=== PATIENT | male | born 1950 | race African-American/Black ===

== ENCOUNTER 2017-04-09 17:25 | Inpatient (IN) | payer OTHER ==
[~2017-04-09 17:25] MED LIST: ISOVUE-370 76%-LOCM 1 ML ONE
[2017-04-09] MEDS ORDERED: Ondansetron HCl/PF 4 MG/2 ML Vial ONE (17:46)
[2017-04-09] MEDS ORDERED: Fentanyl 100 MCG/2 ML VIAL ONE (17:47)
[2017-04-09 18:05] LABS: #Eosinphils 0.1 thou/uL (0.0-0.7); #Lymphocytes 1.4 thou/uL (1.20-3.40); #Monocytes 0.7 thou/uL (0.11-0.59); #Neutrophils 5.5 thou/uL (1.40-6.50); %Basophils 0.5 % (0.0-1.0); %Lymphocytes 18.3 % (21.0-51.0); %Monocytes 8.8 % (0.0-10.0); Hematocrit 37.3 % (42.0-52.0); Mean Platelet Volume 7.5 fL (7.4-10.4); Red Blood Cell (RBC) Count 3.62 mill/uL (4.70-6.10); White Blood Cell (WBC) Count 7.8 thou/uL (4.8-10.8)
[2017-04-09 18:09] LABS: PTT 33.5 SEC (22.9-36.1); Prothrombin Time 14.4 SEC (12.0-14.7)
[2017-04-09 18:18] LABS: Lactic Acid - Sepsis 2.2 mmol/L (0.5-2.2)
[2017-04-09 18:24] LABS: ALT (SGPT) 65 U/L (8-55); AST (SGOT) 70 U/L (5-34); Alkaline Phosphatase 165 U/L (40-150); Anion Gap 15 mmol/L (10-20); BUN (Urea Nitrogen) 23 mg/dL (8.4-25.7); Bilirubin, Total 0.6 mg/dL (0.2-1.2); CK (CPK) 1391 U/L (30-200); Calc. Creatinine Clearance 0 mL/min (70-130); Calcium 9.6 mg/dL (7.8-10.44); Carbon Dioxide 32 mmol/L (23-31); Chloride 96 mmol/L (98-107); Estimated GFR-MDRD 13; Globulin 4.4 g/dL (2.4-3.5); Lipase 74 U/L (8-78); Magnesium 2.4 mg/dL (1.6-2.6); Protein, Total 8.2 g/dL (5.8-8.1)
[2017-04-09] MEDS ORDERED: diphenhydrAMINE 50 MG/ML VIAL ONE (18:33)
[2017-04-09] MEDS ORDERED: methylPREDNISolone Sod Succ/PF 125 MG/2 ML VIAL ONE (18:33)
[2017-04-09] MEDS ORDERED: Famotidine/PF 20 mg/2ml Vial ONE (18:33)
[2017-04-09] MEDS ORDERED: Sterile Water 10 ML ONE (18:34)
--- NOTE | 2017-04-09 18:38 | RAD ---
UPRIGHT PORTABLE CHEST ONE VIEW: 04/09/17 HISTORY: 66-year-old male with cough, weakness, fever and cardiac history. COMPARISON: 08/05/16. FINDINGS: Right ICD. Postop midline sternotomy. Very poor inspiratory effort with some bilateral vascular lila estion and increased markings in the perihilar and infrahilar regions, somewhat more prominent than on prior study although this may be related to decrease inspiratory effort. No overt confluent pneum onia. IMPRESSION: Very poor inspiration. Bilateral vascular congestion with increased linear and interstitial markings bilaterally, somewhat more prominent than on the prior study although this is certainly in part rel ated to less inspiration. No overt confluent pneumonia. Some type of atypical bilateral pneumonitis would certainly be difficult to exclude. POS: CHRISTIANO
--- NOTE | 2017-04-09 18:42 | RAD ---
RIGHT FOOT THREE VIEWS: 04/09/17 HISTORY: 69-year-old male with right foot pain. Patient is a dialysis patient. There is extreme bone demineralization with prominent vascular calcification. Minimal diffuse soft t issue swelling. Minimal cortical deformity of the distal fifth metatarsal which has more the appeara nce of an old fracture, although given the bone demineralization, this could represent an acute mini mal buckling type fracture, correlate clinically. It is new from the 02/28/15 study. IMPRESSION: Diffuse swelling with severe bone demineralization, arthrosis and prominent vascular calcifications. Mild cortical deformity of the distal fifth metatarsal, evidence for a nondisplaced fracture, indet erminate age. POS: JOSEFA
--- NOTE | 2017-04-09 21:02 | CT ---
CT ANGIOGRAM OF THE CHEST WITH 3D RENDERIN04/09/17 HISTORY: 66-year-old male with cough, shortness of breath, chills, and chest pain. Patient is a dialysis tessa ent and indicates a contrast allergy and was premedicated prior to the scan. There are fairly extensive linear and interstitial parenchymal changes throughout both lungs, partic ularly the mid and lower lung zones, some of which appears to be more chronic, although certainly so me degree of interstitial edema or even atypical bilateral pneumonitis is a consideration. There is no significant pleural effusion. There is cardiomegaly with extensive three vessel coronary artery c alcific disease. There is a right ICD. There is some ossification or calcification within the region of the neck of the gallbladder possibly a gallstone or some milk of calcium gallbladder. The visual ized [place] kidneys are small and calcified. The central pulmonary arteries are free of thrombus. Th e more peripheral pulmonary arteries, particularly in the lower lobes are somewhat less than optimal ly imaged because of motion artifact as well as the extensive linear and interstitial lung disease. There is noted what appear to be two possible esophageal diverticula. No evidence for aortic aneurys m. IMPRESSION: No significant CT evidence for acute PE. Central pulmonary arteries are free of thrombus. Some of th e more peripheral lower lobe pulmonary arteries are somewhat less than optimally imaged. Extensive b ilateral linear and interstitial lung disease, particularly in the mid and lower lung zones have a m ore of a chronic appearance although an atypical bilateral pneumonitis could have a similar appearan ce. Right ICD. Extensive three vessel coronary artery calcific disease. Some calcification in the re gion of the neck of the gallbladder possibly small gallstones or some milk of calcium. Very small ch ronic calcified [place] kidneys. POS: CHRISTIANO
[2017-04-09] MEDS ORDERED: Heparin 25,000 units/D5W 500 ML ONE (21:05)
[2017-04-09] MEDS ORDERED: Heparin 5,000 UNITS/ML VIAL ONE (21:05)
[2017-04-09 22:27] LABS: Troponin I 1.176 ng/mL (< 0.028)
[2017-04-09] MEDS ORDERED: Clopidogrel Bisulfate 300 MG TAB PO SCH (23:30)
[2017-04-10 00:03] VITALS: BMI 28.0
[2017-04-10] MEDS ORDERED: Acetaminophen 325 MG TAB PO PRN (00:05)
[2017-04-10] MEDS ORDERED: Ondansetron ODT 4 MG TAB PO PRN (00:05)
[2017-04-10] MEDS ORDERED: Atorvastatin Calcium 40 MG TAB PO SCH (00:15)
[2017-04-10] MEDS: cefTRIAXone\\ROCEPHIN 1 GM in Sodium Chloride 0.9% 100 ML IVPB SCH ×2 (01:03→04:39)
[2017-04-10 01:24] LABS: Troponin I 2.218 ng/mL (< 0.028)
[2017-04-10] MEDS ORDERED: Nitroglycerin 0.4 MG TAB (25 Tab Bottle) SL PRN (03:39)
[2017-04-10] MEDS ORDERED: Albuterol Sulfate 2.5 mg/3 ml Neb NEB PRN (03:40)
[2017-04-10 03:45] LABS: #Lymphocytes 0.7 thou/uL (1.20-3.40); #Monocytes 0.2 thou/uL (0.11-0.59); #Neutrophils 6.8 thou/uL (1.40-6.50); %Eosinophils 0.2 % (0.0-10.0); %Lymphocytes 9.5 % (21.0-51.0); %Monocytes 2.1 % (0.0-10.0); Hematocrit 33.4 % (42.0-52.0); Mean Platelet Volume 7.8 fL (7.4-10.4); Red Blood Cell (RBC) Count 3.23 mill/uL (4.70-6.10); White Blood Cell (WBC) Count 7.7 thou/uL (4.8-10.8)
[2017-04-10 04:01] LABS: ALT (SGPT) 62 U/L (8-55); AST (SGOT) 66 U/L (5-34); Alkaline Phosphatase 152 U/L (40-150); Anion Gap 19 mmol/L (10-20); BUN (Urea Nitrogen) 28 mg/dL (8.4-25.7); Bilirubin, Total 0.5 mg/dL (0.2-1.2); CK (CPK) 1167 U/L (30-200); Calc. Creatinine Clearance 17 mL/min (70-130); Calcium 9.5 mg/dL (7.8-10.44); Carbon Dioxide 25 mmol/L (23-31); Chloride 97 mmol/L (98-107); Estimated GFR-MDRD 11; Globulin 4.1 g/dL (2.4-3.5); Protein, Total 7.8 g/dL (5.8-8.1)
[2017-04-10 04:11] LABS: Critical Call CKMBM RESULT DECREASING; Troponin I 2.386 ng/mL (< 0.028)
[2017-04-10] MEDS ORDERED: cefTRIAXone\\ROCEPHIN 1 GM in Sodium Chloride 0.9% 100 ML IVPB SCH (04:45)
--- NOTE | 2017-04-10 07:17 | PDOC.FM ---
- Subjective Subjective: The patient reports that he is still experiencing some chest discomfort this AM that is in the center of his chest and radiates to his left arm. He is also having SOB and abdominal pain. He denies any nausea, vomiting, leg swelling. - Objective MAR Reviewed: Yes Vital Signs & Weight: Vital Signs (12 hours) Temp Pulse Resp BP Pulse Ox 04/10/17 04:00 98.7 F 82 18 103/46 L 99 04/09/17 23:50 97.2 F L 80 18 127/69 98 Weight Weight 101.775 kg Result Diagrams: 04/10/17 03:38 04/10/17 03:38 <Regina Guevara - Last Filed: 04/10/17 07:44> - Objective Vital Signs & Weight: Vital Signs (12 hours) Temp Pulse Resp BP Pulse Ox 04/10/17 08:00 98.7 F 82 18 95 04/10/17 04:00 98.7 F 82 18 103/46 L 99 04/09/17 23:50 97.2 F L 80 18 127/69 98 Weight Weight 101.775 kg Result Diagrams: 04/10/17 03:38 04/10/17 03:38 <Kathryn High - Last Filed: 04/10/17 10:02> Phys Exam - Physical Examination Constitutional: NAD HEENT: moist MMs Respiratory: wheezing present decreased inspiratory breath sounds, crackles heard at bilateral lung bases Cardiovascular: RRR, no significant murmur Gastrointestinal: soft, no distention, positive bowel sounds tender in RUQ Musculoskeletal: edema present (trace edema around ankles bilaterally) Neurological: non-focal, moves all 4 limbs Psychiatric: normal affect, A&O x 3 <Regina Guevara - Last Filed: 04/10/17 07:44> Dx/Plan (1) NSTEMI (non-ST elevated myocardial infarction) Code(s): I21.4 - NON-ST ELEVATION (NSTEMI) MYOCARDIAL INFARCTION Status: Acute Plan: Patient had NSTEMI with h/o known CAD s/p 3v CABG 09/2014 and AICD placed for ischemic cardiomyopathy in 07/2015 elevated trops, chronic LBBB, atrial paced rhythm on EKG -Cards has been consulted, appreciate recs -Heparin gtt -nitro gtt -aspirin -plavix (2) Interstitial lung disease Code(s): J84.9 - INTERSTITIAL PULMONARY DISEASE, UNSPECIFIED Status: Acute Plan: Patient has interstitial lung disease on CT Decrease inspiration, requiring O2 -Continue O2 supplementation prn -Could be fluid overloaded -continue to monitor (3) Congestive heart failure Code(s): I50.9 - HEART FAILURE, UNSPECIFIED Status: Acute Qualifiers: Congestive heart failure type: diastolic Congestive heart failure chronicity: chronic Qualified Code(s): I50.32 - Chronic diastolic (congestive ) heart failure Plan: Patient had systolic CHF that improved s/p pacemaker placement, but he does have grade I/III diastolic CHF He appears a little fluid overloaded, but this could be 2/2 renal -Will monitor -O2 prn -Continue home meds -Monitor on tele (4) Chronic atrial fibrillation Code(s): I48.2 - CHRONIC ATRIAL FIBRILLATION Status: Resolved Plan: Patient had chronic a-fib, but had pacemaker and AICD placed in 07/2015 -Will monitor on tele -Continue home meds (5) ESRD (end stage renal disease) on dialysis Code(s): N18.6 - END STAGE RENAL DISEASE; Z99.2 - DEPENDENCE ON RENAL DIALYSIS Status: Chronic Plan: Patient has ESRD and has been on dialysis for about 3 years -Will consult track service worker - Dr. Reeves, appreciate recs (6) S/P CABG x 3 Code(s): Z95.1 - PRESENCE OF AORTOCORONARY BYPASS GRAFT Status: Chronic Plan: Patient had a 3v CABG in 09/2014 CT shows evidence of atherosclerosis -Cards on board, appreciate recs -Continue home meds (7) GERD (gastroesophageal reflux disease) Code(s): K21.9 - GASTRO-ESOPHAGEAL REFLUX DISEASE WITHOUT ESOPHAGITIS Status: Acute Qualifiers: Esophagitis presence: without esophagitis Qualified Code(s): K21.9 - Gastro -esophageal reflux disease without esophagitis Plan: stable, continue home meds (8) Anemia of chronic renal failure Code(s): N18.9 - CHRONIC KIDNEY DISEASE, UNSPECIFIED; D63.1 - ANEMIA IN CHRONIC KIDNEY DISEASE Status: Chronic Qualifiers: Chronic kidney disease stage: stage 5 Qualified Code(s): N18.5 - Chronic kidney disease, stage 5; D63.1 - Anemia in chronic kidney disease; D63.1 - Anemia in chronic kidney disease Plan: Stable, chronic -Will monitor <Regina Guevara - Last Filed: 04/10/17 07:44> Attending Addendum - Attending Addendum I personally evaluated the patient and discussed the management with Dr. Guevara. I agree with the History, Examination, Assessment and Plan documented above with any addition or exceptions noted below. The patient continues to note chest pain. He has been loaded with plavix and is on a heparin drip. Cardiology has been consulted. Will also consult Dr. Reeves, pt's track service worker. Get echo. Continue to trend cardiac enzymes. <Kathryn High - Last Filed: 04/10/17 10:02>
[2017-04-10 07:24] LABS: Troponin I 3.151 ng/mL (< 0.028)
[2017-04-10] MEDS: traMADol HCl 50 MG TAB PO PRN (07:26)
[2017-04-10] MEDS: Famotidine/PF 20 mg/2ml Vial SLOW IVP SCH (09:23)
[2017-04-10] MEDS: Aspirin 325 MG TAB PO SCH (09:24)
[2017-04-10] MEDS: Sevelamer Carbonate 800 MG TAB PO SCH ×3 (09:24→17:32)
[2017-04-10] MEDS: Folic Acid 1 MG TAB PO SCH (09:24)
[2017-04-10] MEDS: Clopidogrel Bisulfate 75 MG TAB PO SCH (09:24)
[2017-04-10] MEDS: Gabapentin 100 MG CAP PO SCH (09:24)
[2017-04-10] MEDS ORDERED: diphenhydrAMINE 25 MG CAP PO SCH (12:15)
[2017-04-10 12:21] LABS: PTT 121.6 SEC (22.9-36.1)
[2017-04-10 12:34] LABS: Troponin I 3.369 ng/mL (< 0.028)
--- NOTE | 2017-04-10 16:08 | CON ---
DATE OF CONSULTATION: 04/10/2017 REASON FOR CONSULTATION: Chest pain, non-ST elevation myocardial infarction with continued intermit tent chest pain and hypotension in a patient with end-stage renal disease. HISTORY OF PRESENT ILLNESS: Mr. Lopes is a delightful 66-year-old patient of Dr. Saqib perez. The patient states the last few days he has been having discomfort in his chest, but last night, he had severe amount of chest pain in his middle of his chest that is going across his chest. He c roopa to the emergency room and he has an intraventricular conduction delay on the EKG with previous p acemaker defibrillator, but the cardiac enzymes were elevated. He was given heparin and loaded with Plavix. He continued to have chest pain intermittently, since then feels weak and fatigued now. The patient's blood pressure is also low. PAST MEDICAL HISTORY: The patient has a history of coronary artery disease. He underwent cardiac c atheterization by Dr. Lemos in 2014. The cardiac catheterization was done revealed heavily calc ified 3-vessel disease including diffusely diseased LAD and diagonal system with heavy calcification and occluded circumflex and right coronary. The patient underwent successful bypass surgery to the LAD in one of the diagonals. The other vessels could not be bypassed. The patient has diffuse ath erosclerosis. Patient has also had a problem intermittently with a thrombus in his left ventricle, was transiently on anticoagulation. He also is on hemodialysis. MEDICATIONS AT HOME: Included, 1. Aspirin. 2. Amiodarone for atrial fibrillation. 3. Atorvastatin. 4. Albuterol inhaler. 5. Gabapentin. 6. Plavix. 7. Aspirin. 8. Amoxicillin. ALLERGIES: Allergy to CODEINE, allergy to IODINE, allergy to TETRACYCLINE. SOCIAL HISTORY: He is accompanied by his . His is very supportive of him. Patient does n ot use alcohol or tobacco. He is relatively inactive due to his cardiac problems. PAST SURGICAL HISTORY: 1. The patient has a history of bypass surgery x2 as outlined above 2014. The other vessels could not be bypassed. 2. Previous pacemaker defibrillator implantation. 3. End-stage renal disease, has a dialysis access. REVIEW OF SYSTEMS: Constitutional: Positive for weakness, fatigue. Vision: No changes. Hearing: No changes. Pulmonary: No cough or wheezing. Cardiac: As outlined above. Gastrointestinal: N o nausea, vomiting, diarrhea. Skin: No rashes. Neurologic: No unilateral weakness or numbness. Psychiatric: No unusual depression or anxiety. Hematologic: No unusual bruising. Genitourinary: No burning with urination. Musculoskeletal: No unusual joint pains. Skin: No rashes. PHYSICAL EXAMINATION: GENERAL: He is an ill-appearing gentleman, lying supine. VITAL SIGNS: Blood pressure 99/51, pulse 80. EYES: Sclerae nonicteric. Mouth mucous membranes moist. NECK: Supple. No lymphadenopathy. LUNGS: Clear anteriorly and laterally. CARDIOVASCULAR: Normal S1, normal S2. No murmur, rub or gallop. ABDOMEN: Soft, nontender. No hepatosplenomegaly. EXTREMITIES: Warm, dry. No clubbing. No cyanosis or edema. Pedal pulses are difficult to feel. Popliteal pulses are palpable. PERTINENT LABORATORY AND X-RAY FINDINGS: His peak troponin is 3.151. CPK 1167, creatinine is 6.26. EKG reveals atrial paced ventricular sensed rhythm with a wide complex. I did review the cardiac catheterization films, did reveal heavily calcified 3-vessel disease. Circ umflex and right coronary could not be bypassed, one of the diagonal was bypassed but the others wer e diffuse disease which could not be bypassed. Echocardiogram revealed ejection fraction of 25-30% looks closer to 25% with extensive inferior britni esis and thinning, mild mitral regurgitation. ASSESSMENT: 1. Previous bypass surgery. 2. Three vessel coronary disease, heavily calcified. 3. Non-ST elevation myocardial infarction. 4. Relatively hypotensive. 5. Congestive heart failure, systolic, chronic with relatively low blood pressure. 6. Previous pacemaker defibrillator. 7. History of paroxysmal atrial fibrillation. 8. End-stage renal disease. 9. History of gastrointestinal bleeding in the remote past. Fortunately, his hemoglobin now is 10. 3. PLAN: At this time, the options are difficult and somewhat limited if the patient is in addition to all the above, also allergic to IODINE. At this time, we will hopefully to stabilize him medically . We have added intravenous heparin. If he needs to go to the Intensive Care Unit for medicines fo r blood pressure support to help with dialysis that may need to be done. Reviewing the records, it is unclear how likely any other percutaneous intervention would be helpful based on the diffuse natu re of the disease. The only disease which could potentially be helped would be if there is a lesion in the vein graft. It is impossible to say at this time what the etiology of non-ST elevation infa rction it is. If the problem of the makah vessels, then the options would be limited and medical t herapy will likely the only option. At this time, we will try to stabilize him medically proceed to catheterization only if absolutely needed. Prognosis is guarded in this gentleman and a long discu ssion with the patient and .
--- NOTE | 2017-04-10 17:18 | ADD-HP ---
ADDENDUM CHIEF COMPLAINT: Chest pain. HISTORY OF PRESENT ILLNESS: The patient is a 66-year-old -[place] male with a significant past medical history of end-stage renal disease on hemodialysis Wednesday, Wednesday, Wednesday, hypertension, and chronic atrial fibrillation, coronary artery disease with history of 3-vessel bypass, he also has history of congestive heart failure who presented to the ER after developing chest pain following dialysis. The patient notes that he has had chest pain for about 3 weeks and describes it as crushing substernal chest pain that radiates to his left arm associated with shortness of breath. The patient was noted to have elevated cardiac enzymes, but no ST elevations noted on EKG. The patient has been admitted for NSTEMI and Cardiology has been consulted. The patient has been loaded with Plavix and is on a heparin drip at this time. Cardiac enzymes continue to go up and his chest pain is better than on admission , but is not completely resolved. The patient also notes a cough for a couple weeks off and on as well. I have reviewed the complete history and physical from Dr. Murdock, and have repeated pertinent portions of the physical exam and history myself. I agree with his documentation. Please see the resident's note for full documentation of the history and physical, assessment and plan. KEARA
[2017-04-10 17:29] LABS: Critical Call Chem Troponin I RESULT DECREASING; Troponin I 3.285 ng/mL (< 0.028)
[2017-04-10] MEDS: diphenhydrAMINE 25 MG CAP PO PRN (20:40)
[2017-04-10] MEDS: Atorvastatin Calcium 40 MG TAB PO SCH (20:41)
[2017-04-10] MEDS: Heparin 10,000 UNITS/ 10 ML VIAL SLOW IVP SCH (22:17)
--- NOTE | 2017-04-11 01:16 | HP-2 ---
DATE OF ADMISSION: 04/09/2017 REPORT TYPE: History and physical exam. LOCATION: [place], [place]. DATE OF SERVICE: 04/09/2017. COSIGNER: Kathryn High M.D. Code status: FULL CODE. PRIMARY CARE PHYSICIAN: Mima PRINGLE. ATTENDING PHYSICIAN: Kathryn High M.D. RESIDENT PHYSICIAN: Blaise Murdock DO HISTORIAN: The history provided by the patient and the patient's . SPECIALIST: Nephrology, Dr. Reeves; Cardiology, Dr. Lemos; electrical prospecting engineer unknown. CHIEF COMPLAINT: Increasing shortness of breath, dyspnea on exertion, paroxysmal nocturnal dyspnea, cough, fever, chills, nausea, and vomiting. HISTORY OF PRESENT ILLNESS: The patient is a 66-year-old male with past medical history of coronary artery disease, status post 3-vessel CABG, end-stage renal disease on dialysis Wednesday, Wednesday, a wednesday for 4 hours, hypertension, hyperlipidemia, and hepatitis C, who presents to the ED with 1 month history of increasing dyspnea on exertion, shortness of breath, paroxysmal nocturnal dyspnea. The patient denies any acute events or medication or dialysis regimen changes prior to the onset of these symptoms. He also notes chest pressure while lying flat in bed over the last month that is r elieved by sitting up or with head elevation. He is also complaining of fever, chills, and a produc tive cough. MEDICATIONS: Amiodarone, Zepatier, folic acid, gabapentin, sevelamer, and tramadol. PAST MEDICAL HISTORY: Coronary artery disease status post CABG (3-vessel), ESRD on dialysis. PAST SURGICAL HISTORY: CABG x1. ALLERGIES: No known drug allergies. ER COURSE: In the ER, the patient was given 1 gram of Rocephin, was started on heparin 60 units per kilogram and a heparin drip at 12 units per kilogram per hour, was additionally given aspirin 325 m g, Solu-Medrol 125 mg IV, fentanyl 50 mcg, and 4 mg of Zofran. FAMILY HISTORY: Deferred. SOCIAL HISTORY: Nonsmoker and nondrinker. Denies drug use. ILL CONTACTS: The patient denies ill contacts. REVIEW OF SYSTEMS: GENERAL: The patient complains of fever and chills, sleep changes and fatigue. Denies night sweats . ENT: Complains of nasal congestion, rhinorrhea, sore throat. RESPIRATORY: The patient complains of cough, congestion, shortness of breath, exercise intolerance, dyspnea on exertion. CARDIOVASCULAR: The patient complains of chest pain, palpitations, paroxysmal nocturnal dyspnea, or orthopnea. The patient denies edema. GI: The patient complaints of nausea and vomiting. Denies diarrhea, constipation, abdominal pain. MUSCULOSKELETAL: The patient complains of pain, stiffness, and arthralgias. NEURO: The patient denies complaints of weakness. The patient denies syncopal episodes. PHYSICAL EXAMINATION: VITAL SIGNS: Blood pressure in the ED 108/60, pulse 90, respirations 14-23 breaths per minute, T-ma x 99.1, pulse ox 97% on room air. Current weight 105 kilograms. GENERAL: The patient is alert and oriented, in no acute distress, obese, and lethargic. EYES: Pupils are equal, round, and reactive to light. Extraocular muscles are intact. Conjunctiva within normal limits. ENT: Oropharynx within normal limits. NECK: Supple, without lymphadenopathy, no thyromegaly. CARDIOVASCULAR: Regular rate and rhythm. No murmurs, rubs or gallops. Radial pulses diminished 1+ . Pedal pulses diminished 1+. RESPIRATORY: Normal effort, no retractions. Lungs had rales, rhonchi and expiratory wheezing throu ghout all lung bolanos. SKIN: No cyanosis. ABDOMEN: Soft and nontender. Normoactive bowel sounds in all 4 quadrants. No masses, distention o r organomegaly. EXTREMITIES: No clubbing, no cyanosis. The patient had 1+ pitting edema up to the distal tibia. T he patient also had a left AV fistula in place with an audible bruit on auscultation. MUSCULOSKELETAL: Structure within normal limits. Tone within normal limits. NEUROLOGIC: No focal deficits. Cranial nerves II-XII are intact. GCS 15. LABORATORY DATA: White blood cells 7.8, hemoglobin 11.5, hematocrit 37.3, platelets 186. Sodium 13 9, potassium 4.3, chloride 96, bicarbonate 32, BUN 23, creatinine 5.34, glucose 97, calcium 9.6, tot al protein 8.7, albumin 3.8, AST 70, ALT 65, alkaline phosphatase 165, magnesium 2.4, lactic acid is 2.2. PT 14.4, PTT 33.5, INR 1.1. Cardiac enzymes: CK-MB 61.9. Initial troponin 0.40 and BNP is 1165. Additional labs include CK of 1391, lipase 74. EKG in the ED showed a paced rhythm with a prolonged QT and some left axis deviation. Chest x-ray in the ED showed bilateral vascular congestion with increased linear and interstitial ma rkings bilaterally. CTA showed no evidence of pulmonary embolism. ASSESSMENT AND PLAN: 1. [id number] elevation myocardial infarction. We will admit to tele. The patient was given h eparin in emergency department. Cardiology has been consulted and is aware of the case, recommended Plavix 300 mg, which was given in the emergency department. We will continue to recheck troponins q.3 h. and monitor for signs and symptoms of worsening clinical status and/or a large jump in the tr oponins. We will schedule cardiac echo for tomorrow and continue the patient on Plavix 75 mg per da y. 2. End-stage renal disease on dialysis Wednesday, Wednesday, and Wednesday. We will consult Nephrology a nd appreciate recommendations. Consider dialysis tomorrow. 3. Hyperlipidemia. The patient was placed on high intensity statin. 4. Transaminitis, it is likely secondary to muscular source versus chronic hepatitis. CK was 1339, AST 70, ALT 65, alkaline phosphatase 165. We will trend the LFTs with daily CK and a CMP. 5. Dyspnea on exertion. We will check a procalcitonin to rule out a lung etiology as opposed to ca rdiac, as well as a rapid flu. DISPOSITION AND LENGTH OF HOSPITAL STAY: The patient is guarded. Anticipated length of stay is gre ater than or equal to 2 days. Symptomatic medication will be provided. History and physical exam as well as management was discussed with Dr. Kathryn High.
[2017-04-11] MEDS: Heparin 25,000 units/D5W 500 ML IVPB SCH (03:33)
[2017-04-11 04:52] LABS: #Eosinphils 0.4 thou/uL (0.0-0.7); #Lymphocytes 1.4 thou/uL (1.20-3.40); #Monocytes 0.9 thou/uL (0.11-0.59); #Neutrophils 9.4 thou/uL (1.40-6.50); %Basophils 0.1 % (0.0-1.0); %Eosinophils 3.7 % (0.0-10.0); %Lymphocytes 11.5 % (21.0-51.0); Hematocrit 35.4 % (42.0-52.0); Red Blood Cell (RBC) Count 3.42 mill/uL (4.70-6.10)
[2017-04-11 05:05] LABS: ALT (SGPT) 63 U/L (8-55); AST (SGOT) 56 U/L (5-34); Alkaline Phosphatase 159 U/L (40-150); Anion Gap 22 mmol/L (10-20); BUN (Urea Nitrogen) 45 mg/dL (8.4-25.7); Bilirubin, Total 0.5 mg/dL (0.2-1.2); Calc. Creatinine Clearance 13 mL/min (70-130); Calcium 9.6 mg/dL (7.8-10.44); Carbon Dioxide 25 mmol/L (23-31); Chloride 94 mmol/L (98-107); Estimated GFR-MDRD 8; Globulin 4.3 g/dL (2.4-3.5); Protein, Total 8.2 g/dL (5.8-8.1)
[2017-04-11 05:17] LABS: PTT 208.6 SEC (22.9-36.1)
[2017-04-11] MEDS: Heparin 10,000 UNITS/ 10 ML VIAL SLOW IVP SCH (07:23)
--- NOTE | 2017-04-11 07:30 | PDOC.FM ---
- Subjective Subjective: The patient reports that he is no longer having chest pain and he is not having SOB at this time, currently off oxygen. He denies abdominal pain, nausea, vomiting. - Objective MAR Reviewed: Yes Vital Signs & Weight: Vital Signs (12 hours) Temp Pulse Resp BP Pulse Ox 04/11/17 03:47 99.3 F 92 20 100/65 95 04/11/17 00:00 92 20 115/72 04/10/17 20:00 98.6 F 94 20 108/64 97 Weight Weight 102.829 kg I&O: 04/10/17 04/11/17 04/12/17 06:59 06:59 06:59 Intake Total 720 Output Total 0 Balance 720 Result Diagrams: 04/11/17 04:29 04/11/17 04:29 <Regina Guevara - Last Filed: 04/11/17 07:27> - Objective Vital Signs & Weight: Vital Signs (12 hours) Temp Pulse Resp BP Pulse Ox 04/11/17 08:21 98.9 F 92 20 101/61 93 L 04/11/17 03:47 99.3 F 92 20 100/65 95 04/11/17 00:00 92 20 115/72 Weight Weight 102.829 kg I&O: 04/10/17 04/11/17 04/12/17 06:59 06:59 06:59 Intake Total 1145.2 Output Total 0 Balance 1145.2 Result Diagrams: 04/11/17 04:29 04/11/17 04:29 <Kathrny High - Last Filed: 04/11/17 09:16> Phys Exam - Physical Examination Constitutional: NAD HEENT: moist MMs decreased breath sounds, rales in the bilateral bases Cardiovascular: RRR, no significant murmur, no rub Gastrointestinal: soft, non-tender, no distention, positive bowel sounds Musculoskeletal: pulses present, edema present (trace edema) Neurological: non-focal, moves all 4 limbs Psychiatric: normal affect, A&O x 3 <Regina Guevara - Last Filed: 04/11/17 07:27> Dx/Plan (1) NSTEMI (non-ST elevated myocardial infarction) Code(s): I21.4 - NON-ST ELEVATION (NSTEMI) MYOCARDIAL INFARCTION Status: Acute Plan: NSTEMI with h/o known CAD s/p 3v CABG 09/2014 and AICD placed for ischemic cardiomyopathy in 07/2015 elevated trops, atrial paced rhythm on EKG -Cards has been consulted, appreciate recs - current recommendation is for medical management as patient is not a good candidate for alternatives -Heparin gtt -nitro prn, hypotension yesterday s/p one dose of nitro - so will monitor closely if pt requires nitro again -aspirin -plavix (2) Interstitial lung disease Code(s): J84.9 - INTERSTITIAL PULMONARY DISEASE, UNSPECIFIED Status: Acute Plan: Patient has interstitial lung disease on CT Decrease inspiration, requiring O2 -Continue O2 supplementation prn -Could be fluid overloaded -continue to monitor (3) Congestive heart failure Code(s): I50.9 - HEART FAILURE, UNSPECIFIED Status: Acute Qualifiers: Congestive heart failure type: diastolic Congestive heart failure chronicity: chronic Qualified Code(s): I50.32 - Chronic diastolic (congestive ) heart failure Plan: Patient had systolic CHF that improved s/p pacemaker placement, but he does have grade I/III diastolic CHF He appears a little fluid overloaded, but this could be 2/2 renal -Will monitor -O2 prn -Continue home meds -Monitor on tele (4) ESRD (end stage renal disease) on dialysis Code(s): N18.6 - END STAGE RENAL DISEASE; Z99.2 - DEPENDENCE ON RENAL DIALYSIS Status: Chronic Plan: Patient has ESRD and has been on dialysis for about 3 years -Will consult scientific writer - Dr. Reeves, appreciate recs -Dialysis MWF (5) S/P CABG x 3 Code(s): Z95.1 - PRESENCE OF AORTOCORONARY BYPASS GRAFT Status: Chronic Plan: Patient had a 3v CABG in 09/2014 CT shows evidence of atherosclerosis -Cards on board, appreciate recs -Continue home meds (6) GERD (gastroesophageal reflux disease) Code(s): K21.9 - GASTRO-ESOPHAGEAL REFLUX DISEASE WITHOUT ESOPHAGITIS Status: Acute Qualifiers: Esophagitis presence: without esophagitis Qualified Code(s): K21.9 - Gastro -esophageal reflux disease without esophagitis Plan: stable, continue home meds (7) Anemia of chronic renal failure Code(s): N18.9 - CHRONIC KIDNEY DISEASE, UNSPECIFIED; D63.1 - ANEMIA IN CHRONIC KIDNEY DISEASE Status: Chronic Qualifiers: Chronic kidney disease stage: stage 5 Qualified Code(s): N18.5 - Chronic kidney disease, stage 5; D63.1 - Anemia in chronic kidney disease; D63.1 - Anemia in chronic kidney disease Plan: Stable, chronic -Will monitor <Regina Guevara - Last Filed: 04/11/17 07:27> Attending Addendum - Attending Addendum I personally evaluated the patient and discussed the management with Dr. Guevara. I agree with the History, Examination, Assessment and Plan documented above with any addition or exceptions noted below. The patient is no longer having chest pain. He is getting dialysis this morning. Patient is being managed medically for nstemi. <Kathryn High - Last Filed: 04/11/17 09:16>
[2017-04-11] MEDS: Lidocaine 4% Topical Sol 50 ML BOT TOP SCH (07:48)
[2017-04-11] MEDS: Aspirin 325 MG TAB PO SCH (12:38)
[2017-04-11] MEDS: Sevelamer Carbonate 800 MG TAB PO SCH ×3 (12:38→18:24)
[2017-04-11] MEDS: Gabapentin 100 MG CAP PO SCH (12:39)
[2017-04-11] MEDS: Clopidogrel Bisulfate 75 MG TAB PO SCH (12:39)
[2017-04-11] MEDS: Folic Acid 1 MG TAB PO SCH (12:39)
[2017-04-11] MEDS: Famotidine/PF 20 mg/2ml Vial SLOW IVP SCH (12:42)
[2017-04-11] MEDS: diphenhydrAMINE 25 MG CAP PO PRN ×2 (12:48→18:39)
[2017-04-11] MEDS: traMADol HCl 50 MG TAB PO PRN (12:48)
[2017-04-11] MEDS: ELBASVIR PO SCH ×2 (18:25→20:57)
[2017-04-11] MEDS: GRAZOPREVIR PO SCH ×2 (18:25→20:57)
--- NOTE | 2017-04-11 20:31 | PRG ---
DATE OF SERVICE: 04/11/2017 HISTORY OF PRESENT ILLNESS: Mr. Lopes is in bed. He is not having chest pain. Today, he underwe nt dialysis successfully. The blood pressure on the low side according to the family. He is restin g comfortably now. PHYSICAL EXAMINATION VITAL SIGNS: Blood pressure is 96/50, pulse 92, irregular. LUNGS: Clear. CARDIAC: Normal S1, normal S2. ABDOMEN: Soft, nontender. EXTREMITIES: There is no edema. ASSESSMENT: 1. End-stage renal disease. 2. Status post non-ST elevation myocardial infarction. 3. Previous bypass surgery with calcified vessels. 4. Allergic to IODINE. PLAN: I will let Dr. Lemos know the patient is here to see if he wants to do heart catheterizat ion tomorrow. If so, he will be need to be pretreated for IODINE allergy. No other changes at the present time.
[2017-04-11] MEDS: Atorvastatin Calcium 40 MG TAB PO SCH (20:56)
[2017-04-11] MEDS ORDERED: predniSONE 20 MG TAB PO SCH (22:30)
[2017-04-11] MEDS: Famotidine 20 MG TAB PO SCH (22:47)
[2017-04-12] MEDS: predniSONE 20 MG TAB PO SCH ×2 (04:33→10:35)
[2017-04-12] MEDS: Famotidine 20 MG TAB PO SCH ×2 (04:33→10:35)
[2017-04-12 05:33] LABS: #Eosinphils 0.1 thou/uL (0.0-0.7); #Lymphocytes 0.6 thou/uL (1.20-3.40); #Monocytes 0.3 thou/uL (0.11-0.59); #Neutrophils 6.4 thou/uL (1.40-6.50); %Basophils 0.5 % (0.0-1.0); %Eosinophils 1.3 % (0.0-10.0); %Lymphocytes 7.6 % (21.0-51.0); %Monocytes 3.3 % (0.0-10.0); Hematocrit 32.3 % (42.0-52.0); Mean Platelet Volume 8.3 fL (7.4-10.4); Red Blood Cell (RBC) Count 3.09 mill/uL (4.70-6.10); White Blood Cell (WBC) Count 7.4 thou/uL (4.8-10.8)
[2017-04-12 05:53] LABS: ALT (SGPT) 64 U/L (8-55); AST (SGOT) 53 U/L (5-34); Alkaline Phosphatase 145 U/L (40-150); Anion Gap 20 mmol/L (10-20); BUN (Urea Nitrogen) 28 mg/dL (8.4-25.7); Bilirubin, Total 0.6 mg/dL (0.2-1.2); Calc. Creatinine Clearance 17 mL/min (70-130); Calcium 10.3 mg/dL (7.8-10.44); Carbon Dioxide 22 mmol/L (23-31); Chloride 95 mmol/L (98-107); Estimated GFR-MDRD 11; Globulin 4.2 g/dL (2.4-3.5)
[2017-04-12] MEDS: Folic Acid 1 MG TAB PO SCH (06:31)
[2017-04-12] MEDS: Aspirin 325 MG TAB PO SCH (06:31)
[2017-04-12] MEDS: Clopidogrel Bisulfate 75 MG TAB PO SCH (06:31)
[2017-04-12] MEDS: Gabapentin 100 MG CAP PO SCH (06:31)
[2017-04-12] MEDS: Heparin 10,000 UNITS/ 10 ML VIAL SLOW IVP SCH (06:40)
[2017-04-12] MEDS: Heparin 25,000 units/D5W 500 ML IVPB SCH (06:50)
[2017-04-12] MEDS: Sevelamer Carbonate 800 MG TAB PO SCH ×3 (07:59→17:21)
--- NOTE | 2017-04-12 08:21 | PDOC.FM ---
- Subjective Subjective: Mr. Lopes reports that he has not had chest pain since yesterday. He is still having a cough with some SOB. He denies any nausea, vomiting, abdominal pain, lightheadedness, fever, chills. - Objective MAR Reviewed: Yes Vital Signs & Weight: Vital Signs (12 hours) Temp Pulse Resp BP Pulse Ox 04/12/17 04:00 98.3 F 94 16 124/58 L 92 L 04/11/17 23:55 98.3 F 85 18 108/69 92 L Weight Weight 104.326 kg I&O: 04/11/17 04/12/17 04/13/17 06:59 06:59 06:59 Intake Total 1145.2 1035 Output Total 0 484 Balance 1145.2 551 Result Diagrams: 04/12/17 04:32 04/12/17 04:32 Phys Exam - Physical Examination Constitutional: NAD HEENT: moist MMs Respiratory: no wheezing, no rales, no rhonchi, clear to auscultation bilateral Cardiovascular: RRR, no significant murmur, no rub Gastrointestinal: soft, non-tender, no distention Musculoskeletal: no edema, pulses present Neurological: non-focal, moves all 4 limbs Psychiatric: normal affect, A&O x 3 Dx/Plan (1) NSTEMI (non-ST elevated myocardial infarction) Code(s): I21.4 - NON-ST ELEVATION (NSTEMI) MYOCARDIAL INFARCTION Status: Acute Plan: NSTEMI with h/o known CAD s/p 3v CABG 09/2014 and AICD placed for ischemic cardiomyopathy in 07/2015 elevated trops, atrial paced rhythm on EKG -Cards has been consulted, appreciate recs - Pt is being pre-treated with prednisone for cath today as pt is allergic to iodine -Heparin gtt -nitro prn -aspirin -plavix (2) Interstitial lung disease Code(s): J84.9 - INTERSTITIAL PULMONARY DISEASE, UNSPECIFIED Status: Acute Plan: Patient has interstitial lung disease on CT Decrease inspiration, requiring O2 -Continue O2 supplementation prn -Could be fluid overloaded -continue to monitor (3) Congestive heart failure Code(s): I50.9 - HEART FAILURE, UNSPECIFIED Status: Acute Qualifiers: Congestive heart failure type: diastolic Congestive heart failure chronicity: chronic Qualified Code(s): I50.32 - Chronic diastolic (congestive ) heart failure Plan: Patient had systolic CHF that improved s/p pacemaker placement, but he does have grade I/III diastolic CHF He appears a little fluid overloaded, but this could be 2/2 renal -Will monitor -O2 prn -Continue home meds -Monitor on tele (4) ESRD (end stage renal disease) on dialysis Code(s): N18.6 - END STAGE RENAL DISEASE; Z99.2 - DEPENDENCE ON RENAL DIALYSIS Status: Chronic Plan: Patient has ESRD and has been on dialysis for about 3 years -Will consult cafeteria worker - Dr. Reeves, appreciate recs Pt received dialysis yesterday -Dialysis MWF (5) S/P CABG x 3 Code(s): Z95.1 - PRESENCE OF AORTOCORONARY BYPASS GRAFT Status: Chronic Plan: Patient had a 3v CABG in 09/2014 CT shows evidence of atherosclerosis -Cards on board, appreciate recs -Continue home meds (6) GERD (gastroesophageal reflux disease) Code(s): K21.9 - GASTRO-ESOPHAGEAL REFLUX DISEASE WITHOUT ESOPHAGITIS Status: Acute Qualifiers: Esophagitis presence: without esophagitis Qualified Code(s): K21.9 - Gastro -esophageal reflux disease without esophagitis Plan: stable, continue home meds (7) Anemia of chronic renal failure Code(s): N18.9 - CHRONIC KIDNEY DISEASE, UNSPECIFIED; D63.1 - ANEMIA IN CHRONIC KIDNEY DISEASE Status: Chronic Qualifiers: Chronic kidney disease stage: stage 5 Qualified Code(s): N18.5 - Chronic kidney disease, stage 5; D63.1 - Anemia in chronic kidney disease; D63.1 - Anemia in chronic kidney disease Plan: Stable, chronic -Will monitor
[2017-04-12] MEDS: diphenhydrAMINE 25 MG CAP PO PRN ×2 (10:37→20:41)
--- NOTE | 2017-04-12 11:38 | EKG ---
Test Reason : Blood Pressure : / mmHG Vent. Rate : 079 BPM Atrial Rate : 079 BPM P-R Int : 240 ms QRS Dur : 162 ms QT Int : 440 ms P-R-T Axes : 029 -34 134 degrees QTc Int : 504 ms Atrial-paced rhythm with prolonged AV conduction Left axis deviation Left bundle branch block Abnormal ECG When compared with ECG of 05-AUG-2016 14:03, Electronic atrial pacemaker has replaced Sinus rhythm Left bundle branch block has replaced Incomplete right bundle branch block Criteria for Inferior infarct are no longer Present Confirmed by DR. Veronica BAGLEY ([id number]) on 04/12/2017 11:37:54 AM Referred By: KEVIN Confirmed By:DR. Veronica BAGLEY
--- NOTE | 2017-04-12 11:42 | ADD-PRG ---
DATE OF SERVICE: 04/12/2017 This is an addendum to the note of Dr. Regina Guevara. Mr. Lopes is a pleasant 66-year-old black male patient with a known history of coronary artery dis ease status post CABG. He was admitted with chest pain and found to have NSTEMI. He is currently a symptomatic. He has been seen in consultation by the Cardiology Service who are taking him for card iac catheterization at noon. He also has a history of a peripheral neuropathy which we will work up with a TSH, B12 and checking for diabetes of which he has no history.
[2017-04-12] MEDS ORDERED: Hydrocortisone Sod Succ/PF 100 mg/2 ml Vial ONE (12:59)
[2017-04-12] MEDS ORDERED: Nitroglycerin 0.4 MG TAB (25 Tab Bottle) SL PRN (13:05)
[2017-04-12] MEDS ORDERED: Sodium Chloride 0.9% 200 ML IV PRN (13:15)
[2017-04-12 14:37] LABS: PTT 136.2 SEC (22.9-36.1)
[2017-04-12] MEDS ORDERED: Iopamidol 370 76% 100 ML VIAL ONE (15:33)
[2017-04-12] MEDS: Atorvastatin Calcium 40 MG TAB PO SCH (20:40)
[2017-04-12] MEDS: GRAZOPREVIR PO SCH (20:40)
[2017-04-12] MEDS: ELBASVIR PO SCH (20:40)
[2017-04-13 05:34] LABS: #Basophils 0.1 thou/uL (0.0-0.2); #Eosinphils 0.1 thou/uL (0.0-0.7); #Lymphocytes 0.7 thou/uL (1.20-3.40); #Monocytes 0.6 thou/uL (0.11-0.59); #Neutrophils 7.2 thou/uL (1.40-6.50); %Basophils 0.6 % (0.0-1.0); %Eosinophils 0.9 % (0.0-10.0); %Lymphocytes 8.2 % (21.0-51.0); Hematocrit 32.7 % (42.0-52.0); White Blood Cell (WBC) Count 8.7 thou/uL (4.8-10.8)
[2017-04-13 05:36] LABS: PTT 31.3 SEC (22.9-36.1); Prothrombin Time 14.1 SEC (12.0-14.7)
[2017-04-13 05:58] LABS: ALT (SGPT) 60 U/L (8-55); AST (SGOT) 44 U/L (5-34); Alkaline Phosphatase 129 U/L (40-150); Anion Gap 20 mmol/L (10-20); BUN (Urea Nitrogen) 46 mg/dL (8.4-25.7); Bilirubin, Total 0.6 mg/dL (0.2-1.2); Calc. Creatinine Clearance 14 mL/min (70-130); Carbon Dioxide 22 mmol/L (23-31); Chloride 94 mmol/L (98-107); Estimated GFR-MDRD 8; Protein, Total 7.7 g/dL (5.8-8.1)
[2017-04-13] MEDS: Lidocaine 4% Topical Sol 50 ML BOT TOP SCH (06:25)
--- NOTE | 2017-04-13 09:13 | PDOC.FM ---
- Subjective Subjective: Patient in dialysis this AM, resting comfortably. He denies any chest pain, SOB , nausea, vomiting, abdominal pain. He reports no difficulty after the cardiac cath yesterday. He is eating and drinking well. - Objective MAR Reviewed: Yes Vital Signs & Weight: Vital Signs (12 hours) Temp Pulse Resp BP BP Pulse Ox 04/13/17 03:47 97.8 F 73 16 122/81 100 04/12/17 23:41 98.0 F 77 16 95/58 L 94 L Weight Weight 104.372 kg I&O: 04/12/17 04/13/17 04/14/17 06:59 06:59 06:59 Intake Total 1035 950 Output Total 484 0 Balance 551 950 Result Diagrams: 04/13/17 05:09 04/13/17 05:09 Phys Exam - Physical Examination Constitutional: NAD HEENT: moist MMs Respiratory: no wheezing, no rales, no rhonchi, clear to auscultation bilateral Cardiovascular: RRR, no significant murmur, no rub, gallop Gastrointestinal: soft, non-tender, no distention, positive bowel sounds Musculoskeletal: no edema, pulses present Neurological: non-focal, moves all 4 limbs Psychiatric: normal affect, A&O x 3 Dx/Plan (1) NSTEMI (non-ST elevated myocardial infarction) Code(s): I21.4 - NON-ST ELEVATION (NSTEMI) MYOCARDIAL INFARCTION Status: Acute Plan: NSTEMI with h/o known CAD s/p 3v CABG 09/2014 and AICD placed for ischemic cardiomyopathy in 07/2015 elevated trops, atrial paced rhythm on EKG -Cards has been consulted, appreciate recs -Cardiac cath done on 04/12 -Heparin gtt discontinued on 04/12 -nitro prn -aspirin -plavix (2) Interstitial lung disease Code(s): J84.9 - INTERSTITIAL PULMONARY DISEASE, UNSPECIFIED Status: Acute Plan: Patient has interstitial lung disease on CT Decrease inspiration, requiring O2 -Continue O2 supplementation prn -continue to monitor (3) Congestive heart failure Code(s): I50.9 - HEART FAILURE, UNSPECIFIED Status: Acute Qualifiers: Congestive heart failure type: diastolic Congestive heart failure chronicity: chronic Qualified Code(s): I50.32 - Chronic diastolic (congestive ) heart failure Plan: Patient has systolic CHF with EF 25-30% and he does have grade I/III diastolic CHF He appears a little fluid overloaded, but he is getting dialysis -Will monitor -O2 prn -Continue home meds -Monitor on tele (4) ESRD (end stage renal disease) on dialysis Code(s): N18.6 - END STAGE RENAL DISEASE; Z99.2 - DEPENDENCE ON RENAL DIALYSIS Status: Chronic Plan: Patient has ESRD and has been on dialysis for about 3 years -Will consult certified vehicle fire investigator - Dr. Reeves, appreciate recs Pt received dialysis 04/11 and 04/13 -Dialysis MWF (5) S/P CABG x 3 Code(s): Z95.1 - PRESENCE OF AORTOCORONARY BYPASS GRAFT Status: Chronic Plan: Patient had a 3v CABG in 09/2014 CT shows evidence of atherosclerosis -Cards on board, appreciate recs -Continue home meds (6) GERD (gastroesophageal reflux disease) Code(s): K21.9 - GASTRO-ESOPHAGEAL REFLUX DISEASE WITHOUT ESOPHAGITIS Status: Acute Qualifiers: Esophagitis presence: without esophagitis Qualified Code(s): K21.9 - Gastro -esophageal reflux disease without esophagitis Plan: stable, continue home meds (7) Anemia of chronic renal failure Code(s): N18.9 - CHRONIC KIDNEY DISEASE, UNSPECIFIED; D63.1 - ANEMIA IN CHRONIC KIDNEY DISEASE Status: Chronic Qualifiers: Chronic kidney disease stage: stage 5 Qualified Code(s): N18.5 - Chronic kidney disease, stage 5; D63.1 - Anemia in chronic kidney disease; D63.1 - Anemia in chronic kidney disease Plan: Stable, chronic -Will monitor
[2017-04-13] MEDS: Aspirin 325 MG TAB PO SCH (10:54)
[2017-04-13] MEDS: Sevelamer Carbonate 800 MG TAB PO SCH ×3 (10:54→16:51)
[2017-04-13] MEDS: Folic Acid 1 MG TAB PO SCH (10:54)
[2017-04-13] MEDS: Clopidogrel Bisulfate 75 MG TAB PO SCH (10:54)
[2017-04-13] MEDS: Gabapentin 100 MG CAP PO SCH (10:54)
--- NOTE | 2017-04-13 11:41 | ADD-PRG ---
DATE OF SERVICE: 04/13/2017 This is an addendum to the note of Dr. Regina Guevara. Mr. Lopes is currently in dialysis and in no distress. The official report from his cardiac cath has not returned, but he tells us that everything was \\\\"okay\\\\" and no changes have been made in hi s regimen. After consulting with Cardiology we will discharge the patient after dialysis.
[2017-04-13 16:24] VITALS: BP 92/60; TEMP 98.1
--- NOTE | 2017-04-14 13:20 | DIS-2 ---
DATE OF ADMISSION: 04/09/2017 DATE OF DISCHARGE: 04/13/2017 ADMITTING RESIDENT: Blaise Murdock DO DISCHARGE RESIDENT: Regina Guevara MD ADMITTING ATTENDING: Kathryn High MD DISCHARGE ATTENDING: Bigg Pace MD CONSULTATIONS: Dr. Abel and Dr. Lemos with Cardiology, and Dr. Reeves with Nephrology. PROCEDURES: Cardiac catheterization on 04/12/2017. IMAGIN. Chest x-ray showed very poor inspiration, bilateral vascular congestion with increased linear and interstitial markings bilaterally. 2. Chest thorax CTA showed no evidence for acute PE, however, extensive bilateral linear and interstitial lung disease and extensive 3-vessel coronary artery calcific disease. 3. Echocardiogram, ejection fraction of 25% to 30%, inferior akinetic and thinned compatible with old infarct. Left atrium is mildly dilated. PRIMARY DIAGNOSES: 1. Nyd-TC-uvrgpmlou myocardial infarction. 2. Transaminitis. 3. Congestive heart failure. 4. End-stage renal disease on hemodialysis. 5. Anemia of chronic renal failure. SECONDARY DIAGNOSES: 1. Interstitial lung disease. 2. History of coronary artery bypass grafting x3. 3. Gastroesophageal reflux disease. DISCHARGE MEDICATIONS: 1. Guaifenesin codeine 200 mg p.o. q.6 hours. 2. Multivitamin 1 each p.o. daily. 3. Claritin 10 mg p.o. daily p.r.n. 4. Gabapentin 100 mg p.o. daily. 5. Plavix 75 mg p.o. daily. 6. Zepatier one each p.o. at bedtime. 7. Ultram 50 mg p.o. t.i.d. p.r.n. 8. Renvela 1600 mg p.o. t.i.d. with meals. 9. Zofran 4 mg p.o. q.6 hours p.r.n. 10. Nitroglycerin 0.4 mg sublingual q.5 minutes p.r.n. 11. Hydrocodone/acetaminophen 10/325 mg 1 each p.o. p.r.n. 12. Folic acid 1 mg p.o. daily. 13. Docusate 100 mg p.o. daily. 14. Atorvastatin 40 mg p.o. at bedtime. 15. Aspirin 81 mg p.o. daily. 16. Amoxicillin 500 mg p.o. t.i.d. 17. Amiodarone 200 mg p.o. daily. 18. ProAir HFA 2 puffs inhaled t.i.d. p.r.n. 19. Ventolin nebulized 3 mL q.6 hours p.r.n. DISCONTINUED MEDICATIONS: None. HISTORY OF PRESENT ILLNESS AND HOSPITAL COURSE: This is a 67-year-old gentleman with a past medical history of coronary artery disease, status post 3- vessel CABG, end-stage renal disease on hemodialysis, interstitial lung disease , who presented with an NSTEMI. Initially, the patient's troponins were elevated , started at 0.4 and continue to trend up and peaked at 3.369 and then began to trend down. His BNP was also elevated at 1165.6. The patient was initially hypotensive after receiving nitro and with his allergy to IODINE. Cardiology decided to medically manage the patient at first with a heparin drip and Plavix to see if the patient would improve with medical therapy. The patient's chest pain did improve; however, on 04/11/2017, it was decided to go forward with doing the cardiac catheterization; however, with the patient's allergy to IODINE , he would require pretreatment with prednisone and the catheterization was planned for 04/12/2017. The cath was done on 04/12/2017, showed no disease that needed urgent intervention. The patient received dialysis on outside of his regular Wednesday, Wednesday, Wednesday routine. He received dialysis on Wednesday and on Wednesday to help with some element of volume overload. The patient's outpatient stock roller, Dr. Lemos informed us that the patient did not need to be on an MAXI inhibitor, ARB, or beta carlos, however, the reason for this is unknown, but this stock roller has been following this patient for number of years. The patient was discharged in good condition with followup scheduled with Dr. Lemos and his primary care physician. DISPOSITION: Stable. DISCHARGE INSTRUCTIONS: 1. Location: Home. 2. Diet: Heart healthy and renal. 3. Activity: Cardiopulmonary limitations. 4. Followup: Follow up with Dr. Parry within [address] Lemos on 04/16/2017 at 11:15 a.m. [facility]ENTERArnaud
== END 2017-04-13 18:21 | disposition home or self-care (01) | DRG 280 ==
LOC: ERS 17:25 → 2NO 21:01
PROVIDERS: ADMIT Family Medicine; ATTEND Family Medicine
PROC: 5A1D70Z Performance of Urinary Filtration, Intermittent, Less than 6 Hours Per Day (ICD-10-PCS; 2017-04-11)
PROC: 4A023N7 Measurement of Cardiac Sampling and Pressure, Left Heart, Percutaneous Approach (ICD-10-PCS; principal; 2017-04-12)
PROC: B2111ZZ Fluoroscopy of Multiple Coronary Arteries using Low Osmolar Contrast (ICD-10-PCS; 2017-04-12)
PROC: B2151ZZ Fluoroscopy of Left Heart using Low Osmolar Contrast (ICD-10-PCS; 2017-04-12)
PROC: B2131ZZ Fluoroscopy of Multiple Coronary Artery Bypass Grafts using Low Osmolar Contrast (ICD-10-PCS; 2017-04-12)
DX: I21.4 Non-ST elevation (NSTEMI) myocardial infarction (principal); N18.6 End stage renal disease; I13.2 Hypertensive heart and chronic kidney disease with heart failure and with stage 5 chronic kidney disease, or end stage renal disease; J84.9 Interstitial pulmonary disease, unspecified; I95.9 Hypotension, unspecified; E87.70 Fluid overload, unspecified; I50.22 Chronic systolic (congestive) heart failure; I48.2 Chronic atrial fibrillation; I25.10 Atherosclerotic heart disease of native coronary artery without angina pectoris; E78.5 Hyperlipidemia, unspecified; B18.2 Chronic viral hepatitis C; K21.9 Gastro-esophageal reflux disease without esophagitis; G47.33 Obstructive sleep apnea (adult) (pediatric); D63.1 Anemia in chronic kidney disease; Z99.2 Dependence on renal dialysis; Z79.51 Long term (current) use of inhaled steroids; Z88.8 Allergy status to other drugs, medicaments and biological substances; Z88.1 Allergy status to other antibiotic agents; Z88.5 Allergy status to narcotic agent; Z91.09 Other allergy status, other than to drugs and biological substances
CPT/HCPCS: 36415; 36416; 71010; 71275; 76942; 80053; 82550; 82553; 82607; 83605; 83690; 83735; 83880; 84145; 84443; 84484; 85025; 85347; 85610; 85730; 87040; 87340; 90935; 93005; 93010; 93306; 93455; 93798; 96365; 96366; 96375; 96376; 99292; A4216; C1760; C1769; G0257; J0696; J1200; J1644; J1720; J2001; J2405; J2930; J3010; J7050; J7506; S0028

== ENCOUNTER 2017-05-01 12:30 | Inpatient (IN) | payer MEDICARE, OTHER ==
[2017-05-01 13:23] LABS: Lactic Acid - Sepsis 2.4 mmol/L (0.5-2.2)
[2017-05-01 13:26] LABS: ALT (SGPT) 55 U/L (8-55); AST (SGOT) 49 U/L (5-34); Alkaline Phosphatase 158 U/L (40-150); Anion Gap 16 mmol/L (10-20); BUN (Urea Nitrogen) 16 mg/dL (8.4-25.7); Bilirubin, Total 0.5 mg/dL (0.2-1.2); CK (CPK) 724 U/L (30-200); Calc. Creatinine Clearance 0 mL/min (70-130); Calcium 9.2 mg/dL (7.8-10.44); Carbon Dioxide 28 mmol/L (23-31); Chloride 100 mmol/L (98-107); Estimated GFR-MDRD 10; Globulin 4.1 g/dL (2.4-3.5); Lipase 71 U/L (8-78); Magnesium 2.3 mg/dL (1.6-2.6); Protein, Total 7.8 g/dL (5.8-8.1)
[2017-05-01 13:27] LABS: Hematocrit 31.4 % (42.0-52.0); Mean Platelet Volume 7.5 fL (7.4-10.4); Red Blood Cell (RBC) Count 2.85 mill/uL (4.70-6.10); White Blood Cell (WBC) Count 8.8 thou/uL (4.8-10.8)
[2017-05-01 13:36] LABS: Troponin I 0.326 ng/mL (< 0.028)
[2017-05-01 14:14] LABS: #Basophils 0.1 thou/uL (0.0-0.2); #Monocytes 0.8 thou/uL (0.11-0.59); #Neutrophils 5.9 thou/uL (1.40-6.50); %Basophils 0.6 % (0.0-1.0); %Eosinophils 0.4 % (0.0-10.0); %Lymphocytes 22.9 % (21.0-51.0); %Monocytes 9.1 % (0.0-10.0); Macrocytosis SLIGHT = 6-15 cells (100X) (0-5/hpf); Polychromasia SLIGHT = 2-3 cells (100X) (0-2/hpf)
--- NOTE | 2017-05-01 15:25 | RAD ---
PORTABLE CHEST: Date: 05/01/17 HISTORY: Cough. FINDINGS: Comparison with 04/09/17 exam. Heart size is enlarged. Postop sternotomy change and defibrillator device present. Film is of subopti mal inspiration. Bibasilar lung changes are similar to the prior exam. IMPRESSION: Cardiomegaly with bibasilar lung changes, which appear to represent atelectasis. Changes are very sim ilar to the previous study. POS: CHRISTIANO
[2017-05-01 16:26] LABS: Troponin I 0.471 ng/mL (< 0.028)
[2017-05-01 19:36] LABS: Troponin I 0.761 ng/mL (< 0.028)
[2017-05-01] MEDS ORDERED: Norepinephrine 8 MG/0.9% NS 250 ML ONE (20:06)
[2017-05-01 21:47] LABS: Sodium 141 mmol/L (135-148)
[2017-05-01 21:54] LABS: Mode NC
[2017-05-01 22:54] VITALS: BMI 28.3
[2017-05-01] MEDS ORDERED: Cefepime 2 GM in Syringe 12.5 ML IVPB SCH (23:00)
[2017-05-01 23:24] LABS: #Eosinphils 0.1 thou/uL (0.0-0.7); #Lymphocytes 1.5 thou/uL (1.20-3.40); #Monocytes 0.6 thou/uL (0.11-0.59); #Neutrophils 6.9 thou/uL (1.40-6.50); %Basophils 0.2 % (0.0-1.0); %Lymphocytes 15.9 % (21.0-51.0); %Monocytes 7.1 % (0.0-10.0); Hematocrit 31.6 % (42.0-52.0); Mean Platelet Volume 7.7 fL (7.4-10.4); Red Blood Cell (RBC) Count 2.87 mill/uL (4.70-6.10); White Blood Cell (WBC) Count 9.1 thou/uL (4.8-10.8)
--- NOTE | 2017-05-01 23:29 | RAD ---
CHEST ONE VIEW 05/01/17 HISTORY: Sepsis. COMPARISON: Chest one view same day. FINDINGS: Heart size continues to be enlarged. There are bibasilar air space opacities. Lungs are severely hypo inflated. Cardiac device is similar. There are layering bilateral pleural effusions. IMPRESSION: No significant change in the radiographic appearance of the chest. POS: H
[2017-05-01 23:37] LABS: Lactic Acid - Sepsis 0.9 mmol/L (0.5-2.2)
[2017-05-01] MEDS ORDERED: Vancomycin HCl 1.25 GM in Sodium Chloride 0.9% 250 ML 250 ML IVPB PRN (23:39)
[2017-05-01] MEDS ORDERED: Vancomycin HCl 750 MG in Sodium Chloride 0.9% 250 ML 250 ML IVPB PRN (23:42)
[2017-05-01] MEDS ORDERED: Vancomycin HCl 1 GM in Premix Bag 1 BAG IVPB PRN (23:42)
[2017-05-01] MEDS ORDERED: Vancomycin HCl 500 MG in Sodium Chloride 0.9% 100 ML IVPB PRN (23:42)
[2017-05-01 23:43] LABS: ALT (SGPT) 44 U/L (8-55); AST (SGOT) 40 U/L (5-34); Alkaline Phosphatase 141 U/L (40-150); Anion Gap 14 mmol/L (10-20); BUN (Urea Nitrogen) 19 mg/dL (8.4-25.7); Bilirubin, Total 0.5 mg/dL (0.2-1.2); Calc. Creatinine Clearance 14 mL/min (70-130); Carbon Dioxide 29 mmol/L (23-31); Chloride 100 mmol/L (98-107); Estimated GFR-MDRD 9; Globulin 3.8 g/dL (2.4-3.5); Protein, Total 7.2 g/dL (5.8-8.1)
[2017-05-01] MEDS ORDERED: Vancomycin Sliding Scale 1 EACH FS PRN (23:43)
[2017-05-01] MEDS ORDERED: HOLD VANCOMYCIN FOR LEVEL >20 FS PRN (23:43)
[2017-05-02 00:17] LABS: Vancomycin, Trough 37.1 ug/mL
[2017-05-02 00:51] LABS: Troponin I 1.276 ng/mL (< 0.028)
[2017-05-02] MEDS ORDERED: PROVENTIL INHALER 6.7 G (200 INHALATIONS) INH PRN (03:53)
[2017-05-02] MEDS ORDERED: Ondansetron ODT 4 MG TAB PO PRN (03:53)
[2017-05-02] MEDS ORDERED: Nitroglycerin 0.4 MG TAB (25 Tab Bottle) SL PRN (03:53)
[2017-05-02] MEDS ORDERED: traMADol HCl 50 MG TAB PO PRN (03:53)
[2017-05-02] MEDS ORDERED: HYDROcodone/Acetaminophen 10/325 mg Tablet PO PRN ×2 (03:53→04:16)
[2017-05-02] MEDS ORDERED: Loratadine 10 MG TAB PO PRN (03:53)
[2017-05-02] MEDS ORDERED: Albuterol Sulfate 2.5 mg/3 ml Neb NEB PRN (03:53)
[2017-05-02 04:05] LABS: #Eosinphils 0.1 thou/uL (0.0-0.7); #Lymphocytes 0.6 thou/uL (1.20-3.40); #Monocytes 0.6 thou/uL (0.11-0.59); #Neutrophils 8.8 thou/uL (1.40-6.50); %Basophils 0.1 % (0.0-1.0); %Eosinophils 0.8 % (0.0-10.0); %Lymphocytes 5.9 % (21.0-51.0); %Monocytes 6.1 % (0.0-10.0); Hematocrit 31.2 % (42.0-52.0); Mean Platelet Volume 7.6 fL (7.4-10.4); Red Blood Cell (RBC) Count 2.85 mill/uL (4.70-6.10); White Blood Cell (WBC) Count 10.1 thou/uL (4.8-10.8)
[2017-05-02 04:22] LABS: Anion Gap 14 mmol/L (10-20); BUN (Urea Nitrogen) 21 mg/dL (8.4-25.7); Calc. Creatinine Clearance 13 mL/min (70-130); Calcium 9.1 mg/dL (7.8-10.44); Carbon Dioxide 29 mmol/L (23-31); Chloride 100 mmol/L (98-107); Estimated GFR-MDRD 8
[2017-05-02 04:31] LABS: Troponin I 1.437 ng/mL (< 0.028)
[2017-05-02] MEDS ORDERED: [UNRECOGNIZED DRUG - OTHER] PO SCH (06:00)
[2017-05-02] MEDS ORDERED: GUAIFENESIN PO SCH (06:00)
[2017-05-02] MEDS ORDERED: CODEINE PHOSPHATE PO SCH (06:00)
--- NOTE | 2017-05-02 06:29 | HP-2 ---
CODE STATUS: FULL. PRIMARY CARE PHYSICIAN: YARY. ATTENDING: Dr. Mosher. PGY-1: Dr. Kovacs. SPECIALIST: Dr. Lemos with Cardiology, and Dr. Reeves with Nephrology. CHIEF COMPLAINT: Cough and hypotension. HISTORY OF PRESENT ILLNESS: This is a 67-year-old male who recently was discharged from the hospital that presents with hypotension and worsening cough of 1 week. The patient's said he has been acting differently and he has been coughing, has a fever as high as 100.8. She states the cough has been present for 2 weeks and has worsened over the past 4 days. He notes that he has been shaking and not as alert as normal. He has also vomited multiple times over the last couple of days. The patient recently began on home O2 and said that he feels better with that. He also notes lower extremity swelling that is unchanged from his baseline. He specifically denies chest pain. In the ER, he was given aspirin, DuoNeb and Rocephin. PAST MEDICAL HISTORY: Significant for coronary artery disease status post CABG 3-vessel, and end-stage renal disease on dialysis, as well as hyperlipidemia, anemia of chronic disease and congestive heart failure. PAST SURGICAL HISTORY: Significant for the CABG. ALLERGIES: None. MEDICATIONS: 1. Guaifenesin codeine 200 mg p.o. 2. Multivitamin. 3. Claritin 10 mg. 4. Gabapentin 100 mg. 5. Plavix 75 mg. 7. Zepatier. 8. Ultram 50 mg. 9. Renvela 1600 mg t.i.d. 10. Zofran 4 mg. 11. Nitroglycerin 0.4 mg sublingual. 12. Hydrocodone/acetaminophen 10/325 mg. 13. Folic acid 1 mg. 14. Docusate 100 mg. 15. Atorvastatin 40 mg. 16. Aspirin 81 mg. 17. Amoxicillin 500 mg t.i.d. 18. Amiodarone 200 mg. 19. ProAir HFA 2 puffs inhaled. 20. Ventolin nebulized 3 mL. FAMILY HISTORY: Deferred. SOCIAL HISTORY: Denies tobacco, alcohol, or drug use. REVIEW OF SYSTEMS: General: He admits to fevers and chills. Denies any weight changes or night sweats. Eyes: Denies any vision changes or eye pain. ENT: Denies nasal congestion, rhinorrhea, or sore throat. Respiratory: Admits to cough. Denies any congestion, shortness of breath. Cardiovascular: Denies any chest pain, palpitations. Does admit to edema. Gastrointestinal: Admits to nausea and vomiting. Denies any diarrhea, constipation, abdominal pain, gastrointestinal bleeding. Genitourinary: Patient is basically anuric. Skin: Denies any new rashes, lesions, jaundice, or itching. Musculoskeletal: Denies any pain, tenderness, stiffness. He does admit to swelling on his lower extremities, left greater than right. Neurologic: He does admit to weakness and also some new shakes/tremors that are new. Psychiatric: Denies any anxiety or depression. PHYSICAL EXAMINATION: VITAL SIGNS: Blood pressure was 102/73, pulse was 88, respirations 22, temperature max was 100.8 rectally. Pulse ox 96% on 2 liters. Current weight is 102 kilograms. GENERAL: He is alert and oriented x4. He is appropriately interactive. EYES: PERRLA. Conjunctivae within normal limits. ENT: Tympanic membranes pearly taveras without bulging or erythema. Nasal mucosa and oropharynx within normal limits. NECK: Supple, without lymphadenopathy, without thyromegaly. He does have some extra swelling around his neck and collar bone area that is new from what his states. CARDIOVASCULAR: Regular rate and rhythm. No murmurs, no gallops. Radial pulses were present. I could not palpate pedal pulses. RESPIRATORY: Normal effort, no retractions. He did have wheezing, crackles to both of his bilateral lung lobes SKIN: Warm and dry. ABDOMEN: Soft, nontender to palpation. Bowel sounds present x4. No masses or distention. EXTREMITIES: No clubbing, cyanosis. He did have edema that was pitting, left greater than right. MUSCULOSKELETAL: Structure, tone, muscle strength and range of motion within normal limits. NEUROLOGIC: No focal neurologic deficits. Sensation within normal limits. Cranial nerves II through XII grossly intact. GCS was 15. He does state that he has drop foot on his left side. PSYCHIATRIC: He is appropriate. LABORATORY DATA: He had a white blood cell of 8.8, platelet count 185, hemoglobin of 9.4, hematocrit 31.4, MCV 110, % neutrophils 67.1. CK 724, CK-MB 24.6. Troponin I was 0.326. Sodium 140, potassium 4.1, chloride 100, bicarbonate 28, BUN 16, creatinine 6.73, glucose 106, calcium 9.2, total protein 7.8, albumin 3.7, total bilirubin 0.5. AST was 49, ALT 55, alkaline phosphatase 158, magnesium was 2.3. Lactate was 2.4. X-RAY FINDINGS: Chest x-ray showed cardiomegaly with bibasilar lung changes that was very similar to a prior study. ASSESSMENT AND PLAN: A 67-year-old male presents with: 1. Septic shock likely secondary to pneumonia which could be healthcare associated pneumonia, We put a central line in. He is on Levophed. He got vancomycin, cefepime and Levaquin, We will put him in the ICU. We are going to repeat his lactate. We will give him IV fluids if needed, and give him all other supportive measures and he will be put on heparin. We will get blood cultures pending. We are going to trend a CBC, BMP, watch his blood pressure closely. 2. Elevated troponins. He had a catheterization 3 weeks [address] Abel was consulted and he basically said to trend his troponins. 3. End-stage renal disease on dialysis Wednesday, Wednesday, and Wednesday. We are going to keep that schedule and consult Dr. Reeves in the morning. 4. Hyperlipidemia, continue home medications. 5. Anemia of chronic disease. We will monitor that going forward. 6. Congestive heart failure. He had a recent echo that showed an ejection fraction that was 25%. Monitor volume status. Consider Cardiology consult if worsens. Disposition and length of hospital stay will be in ICU in greater than 2 midnights. Symptomatic medications will be provided. History and physical exam as well as management have been discussed with Dr. Mosher. KEARA
[2017-05-02 06:33] LABS: Troponin I 1.437 ng/mL (< 0.028)
[2017-05-02 06:40] LABS: Critical Call CKMBM RESULT DECREASING; Critical Call Chem Troponin I RESULT DECREASING; Troponin I 1.462 ng/mL (< 0.028)
--- NOTE | 2017-05-02 07:10 | HP ---
DATE OF ADMISSION: 05/01/2017 HISTORY OF PRESENT ILLNESS: This is attending history and physical for patient Ashley Lopes. For full history and physical, please see Dr. Kovacs's dictated note. Portions of the history and physi justine have been reproduced by myself and I have discussed the plan and I am in agreement with his asses sment and plan as documented. In brief, this patient is a 67-year-old male with a history of systolic congestive heart failure with most recent ejection fraction 25% to 30% approximately 3 weeks ago. The patient also has a history of end-stage renal disease; on hemodialysis Wednesday, Wednesday, and Wednesday; as well as coronary artery disease, status post bypass. The patient reported to the emergency room tonight at the urging of hi s after she noticed that he was not acting normally. The patient reports that yesterday he was in his normal state of health and had his normal dialysis session without complication. However, aft er that time, the reported that he seemed to be more weak than normal and reported not feeling w ell. This morning, she noted that he did not seem himself and that he started having some intermitte nt jerking type motion. Upon questioning with the patient, he denies any specific complaint. He yanez s endorse a productive cough over the last few days to weeks and some increasing shortness of breath and lower extremity swelling. However, he denies any current shortness of breath, chest pain, nausea , vomiting, abdominal pain, skin rash. Upon arrival to the emergency room, the patient had a rectal temperature recorded of 100.8 degrees Fahrenheit. This coupled with the fact of his recent productiv e cough. He was initially thought to be having an episode of pneumonia. However, through the aftern oon, in the emergency room, his vitals became progressively worse and at one point, his systolic bloo d pressure was in the 60s. Of note, review of the patient's recent hospitalization shows there is no rmal blood pressure, systolic pressures 90s to 110s and diastolic pressures 50s to 60s. The patient had labs obtained as well as cultures drawn, and the patient was given Rocephin, and the decision was made to admit him to the critical care unit for presumed septic shock. At the time of my exam, the patient continued to deny any complaints. Blood pressures ranged anywhere from 80s to 110s systolic; however, this was aided by the use of Levophed through peripheral IV at that time. PHYSICAL EXAMINATION: VITAL SIGNS: At the time of my exam, the patient was afebrile. His pulse rate range from 90s to 110s, appeared to be sinus tachycardia. Blood pressure was 110s/60s. Respiratory rate was 22 and oxygen saturation was 92% on 2 liters by nasal cannula. The patient was alert and oriented x4. He did appear diaphoretic and uncomfortable. He did also have occasional rhythmic jerking movements though these were not epileptiform type movements. LUNGS: Harsh and difficult to listen due to poor inspiratory effort. HEART: Regular rate and rhythm without murmurs, rubs, or gallops. ABDOMEN: Soft, non-tender to palpation. EXTREMITIES: Overall normal skin temperature, there was 2+ pitting edema in the bilateral lower extr emities. Peripheral pulses were thready in the upper and lower extremities bilaterally. PERTINENT LABORATORY STUDIES: Showed white count of 8.8, H&H are 9.4 and 31.4, and platelets 185. B MP overall normal with the exception of creatinine 6.73 due to his end-stage renal disease. Initial lactic acid was 2.4 with repeat 1.2. CK 724, CK-MB 24.6, troponin 0.326 with increasing levels to 0. 471 and then 0.761. BNP was 2924. Chest x-ray showed cardiomegaly with bibasilar lung changes, appe ar to represent atelectasis, changes are very similar to previous study. The film was not optimal du e to poor inspiratory effort. ASSESSMENT AND PLAN: This is a 67-year-old male with history of end-stage renal disease, on hemodial ysis, systolic heart failure, and recent hospitalization for non-ST segment elevation myocardial infa rction, who is presenting with fever and hypotension concerning for septic shock. 1. Presumed septic shock. The patient has a central line placed and will be admitted to the ICU. Twyla hyman has currently received 1 liter of normal saline and he does have okay pressures at this time. Steven starks, would be concerned that he is not adequately fluid resuscitated and will eventually need more fl uid. However, due to congestive heart failure and end-stage renal disease, we will slowly bolus this patient's fluids to try to wean him off pressors. Critical Care will be consulted. The patient is to be placed on broad spectrum antibiotics to include vancomycin, cefepime, and Levaquin, the idea to treat possible hospital associated pneumonia due to productive cough and fever in the setting of rec ent hospitalization within the previous 3 weeks. Cultures have been obtained. We will also obtain u rine antigens for Streptococcus and Legionella. Lactate is improved, but this was last checked sever al hours ago. We will repeat to check on that as well as basic labs to ensure that he is continuing moving in the right direction. Wean pressors as tolerated. As he has end-stage renal disease, it is somewhat difficult to ascertain if he has any evidence of end organ damage though he does appear to be perfusing well as he was alert and oriented x4 and able to converse normally with this. I would a lso have some mild consideration for cardiogenic shock in this patient. He does have increasing sign s of congestive heart failure over the last few days and that could be resulting in low blood pressur es. However, he appears to be perfusing okay and he had a catheterization and echo 3 weeks ago and t here has been no active insult that would have caused sudden deterioration in his pump function. How ever, we will keep this in mind. If the patient does not improve, the patient may be started on mela tment with cardiogenic shock. We will consult Cardiology in the morning. We will also continue to m onitor the patient for fevers and elevated white count throughout the hospitalization. 2. Systolic heart failure. We will have to ensure that volume resuscitation does not overload the p atient as he is at risk for this. We will consult Cardiology in the morning. Echo 3 weeks ago showe d ejection fraction of 25% to 30% as documented above and is unnecessary at this time to repeat that. 3. End-stage renal disease, on hemodialysis. Monitor for volume overload as above. We will consult Nephrology and hope to resume his normal dialysis schedule of Wednesday, Wednesday, and Wednesday. 4. Elevated troponins. These are up trending, however, in general all of his values are lower than when he was hospitalized for his [id number] myocardial infarction approximately 3 weeks ago. H eart catheterization at that time did not show any evidence for severe coronary stenosis and therefor e at this time, I suspect this is all related to demand ischemia. We will trend these enzymes as lobo g as they are up trending and discuss case with Cardiology in the morning.
--- NOTE | 2017-05-02 07:43 | PDOC.FM ---
- Subjective Subjective: Patient did well overnight. Nursing reports no acute events. Currently on levophed at 1 with MAPs in low 60s. VSS and afebrile. Patient denies any chest pain, shortness of breath, N/V or abd pain. - Objective MAR Reviewed: Yes Vital Signs & Weight: Vital Signs (12 hours) Temp Pulse Resp Pulse Ox 05/02/17 04:00 98.9 F 05/02/17 01:33 95 05/01/17 23:00 99.1 F 05/01/17 22:15 99.1 F 92 24 H 95 Weight Weight 102.7 kg Most Recent Monitor Data Heart Rate from ECG 79 NIBP 94/59 NIBP BP-Mean 73 Respiration from ECG 20 SpO2 89 I&O: 05/01/17 05/02/17 05/03/17 06:59 06:59 06:59 Intake Total 158 Balance 158 Result Diagrams: 05/02/17 03:30 05/02/17 03:30 <Atiya Harvey - Last Filed: 05/02/17 11:02> - Objective Vital Signs & Weight: Vital Signs (12 hours) Temp Pulse Resp 05/02/17 12:46 74 16 05/02/17 12:00 99 F 05/02/17 08:00 99.3 F 05/02/17 04:00 98.9 F Weight Weight 102.7 kg Most Recent Monitor Data Heart Rate from ECG 76 NIBP 112/73 NIBP BP-Mean 80 Respiration from ECG 14 SpO2 95 I&O: 05/01/17 05/02/17 05/03/17 06:59 06:59 06:59 Intake Total 158 1100 Balance 158 1100 Result Diagrams: 05/02/17 03:30 05/02/17 03:30 <Buster Mosher - Last Filed: 05/02/17 14:36> Phys Exam - Physical Examination Constitutional: NAD Respiratory: no wheezing, clear to auscultation bilateral (distant due to body habitus) Cardiovascular: RRR, no significant murmur Gastrointestinal: soft, non-tender, positive bowel sounds Musculoskeletal: no edema Psychiatric: normal affect <Atiya Harvey - Last Filed: 05/02/17 11:02> Dx/Plan (1) Septic shock Code(s): A41.9 - SEPSIS, UNSPECIFIED ORGANISM; R65.21 - SEVERE SEPSIS WITH SEPTIC SHOCK Status: Acute Plan: Exact etiology unknown but suspect possible HAP. Patient hospitalized about 3wks ago from NSTEMI. CXR showing cardiomegaly w/ bibasilar crackles only, but fever of 100.8 in ED and endorses productive cough over the past few days. Will tx as presumed HAP with Vanc, Cefepime, Levaquin. Bl cx's pending. Cont levophed and titrate to MAP of 65. (2) Hospital-acquired pneumonia Code(s): J18.9 - PNEUMONIA, UNSPECIFIED ORGANISM Status: Acute Plan: Pt febrile to 100.8 in ED and endorses productive over the past few days. Recently hospitalized about 3wks ago for NSTEMI. Cont Vanc, Levaquin and Cefepime. (3) Elevated troponin Code(s): R74.8 - ABNORMAL LEVELS OF OTHER SERUM ENZYMES Status: Acute Plan: Hx of NSTEMI about 3wks ago and followed by Dr. Lemos outpatient. Cardiac enzymes dec from previous hospitalization and could be 2/2 to recent NSTEMI. However, card enzymes trended up during this hospitalization, but have not trended down. Likely 2/2 to demand, but will consult Cardiology for further evaluation. (4) Congestive heart failure Code(s): I50.9 - HEART FAILURE, UNSPECIFIED Status: Acute QualifierTitle: Congestive heart failure type: systolic Plan: sCHF with EF of 25-30% in March. Patient with ESRD on HD (MWF). Cont homes meds and nephro consulted for dialysis. (5) NSTEMI (non-ST elevated myocardial infarction) Code(s): I21.4 - NON-ST ELEVATION (NSTEMI) MYOCARDIAL INFARCTION Status: Acute Plan: Hx of NSTEMI about 3wks ago. Cardiac cath done during that hospitalization without any intervention. Cont ASA, plavix, statin. Dr. Abel of cards consulted. Appreciate recs. (6) ESRD (end stage renal disease) on dialysis Code(s): N18.6 - END STAGE RENAL DISEASE; Z99.2 - DEPENDENCE ON RENAL DIALYSIS Status: Chronic Plan: Dr. Reeves consulted. HD on MWF. <Atiya Harvey - Last Filed: 05/02/17 11:02> Attending Addendum - Attending Addendum I personally evaluated the patient and discussed the management with Dr. Harvey. I agree with the History, Examination, Assessment and Plan documented above with any addition or exceptions noted below. Patient overall unchanged since admision last night. Continues to require pressor support to maintain MAP. He continues to show no evidence of major infection and has been afebrile since arriving to CCU, but we continue on empiric coverage for possible HAP. Pulm, Nephro, and Cardiology consulted and will appreciate their input into case. We will administer fluid bolus to see if that will allow him to decrease pressor dose. He is somewhat more altered this morning, and I have concern for hypercapnia or hypoxia or both. We will work to obtain ABG again today and evaluate. We will also obtain procalcitonin to see if it points in the direction of a serious infection as cause of symptoms. <Buster Mosher - Last Filed: 05/02/17 14:36>
[2017-05-02] MEDS ORDERED: Vancomycin HCl 1 GM in Sodium Chloride 0.9% 250 ML 250 ML IVPB SCH (09:00)
[2017-05-02] MEDS ORDERED: Heparin 5,000 UNITS/ML VIAL SC SCH (09:00)
[2017-05-02] MEDS: Clopidogrel Bisulfate 75 MG TAB PO SCH (09:14)
[2017-05-02] MEDS: Amiodarone 200 MG TAB PO SCH (09:14)
[2017-05-02] MEDS: Heparin 5,000 UNITS/ML VIAL SC SCH ×3 (09:24→21:10)
[2017-05-02] MEDS: Aspirin 81 mg Enteric Coated Tablet PO SCH (09:24)
[2017-05-02] MEDS: Gabapentin 100 MG CAP PO SCH (09:24)
[2017-05-02] MEDS: Sevelamer Carbonate 800 MG TAB PO SCH ×3 (09:24→18:02)
[2017-05-02] MEDS: Docusate 100 MG CAP PO SCH (09:24)
[2017-05-02] MEDS: Folic Acid 1 MG TAB PO SCH (09:24)
[2017-05-02] MEDS: Multivit, Therapeutic 1 TAB PO SCH (09:25)
[2017-05-02 09:31] LABS: Vancomycin, Random 14.8 ug/mL (See Comment)
[2017-05-02] MEDS ORDERED: Sodium Chloride 0.9% 500 ML IV SCH (09:45)
[2017-05-02 09:56] LABS: Base Excess 1.5 mEq/L (0 (+/- 2.5)); O2 Content (venous) 7.6 VOL% (12.5-17.5); pH (venous) 7.21 (7.35-7.45)
[2017-05-02] MEDS ORDERED: Albumin 25% 25 GM/100 ML BOT IVPB SCH (10:45)
[2017-05-02] MEDS: Hydrocortisone Sod Succ/PF 100 mg/2 ml Vial IVP SCH ×3 (11:08→23:31)
--- NOTE | 2017-05-02 12:34 | OP-2 ---
DATE OF PROCEDURE: 05/01/2017 TIME: 2229. INDICATIONS: Persistent hypotension requiring pressors. SUPERVISING PHYSICIANS: Dr. Mosher and Dr. Maddox. SENIOR RESIDENT: Dr. Chaz Beltrán, GLOBAL ACCOUNT DIRECTOR: Dr. Beni Kovacs. PROCEDURE PERFORMED: Left femoral venous catheter placement. PROCEDURE IN DETAIL: A timeout was completed verifying correct patient, procedure site, positioning. Risks, benefits, and alternatives were discussed with the patient and he gave consent verbally. The patient's left femoral area was prepped and draped after left femoral vein was identified with ultrasound. A 1% lidocaine was used to anesthetize the surrounding skin. A triple lumen catheter was introduced into the femoral vein using the Seldinger technique under ultrasound guidance. The first attempt was made and passing of guidewire passed easily through the first portion of the guidewire, but then stopped before guidewire could be placed again or to be pushed further. Ultrasound could not confirm placement in the vein, so guidewire was removed and process was repeated. At this time, guidewire passed easily all the way through vein and triple lumen catheter was placed over in normal fashion. The catheter was threaded smoothly over the guidewire and appropriate blood return was obtained. Each lumen of the catheter was evacuated of air and flushed with sterile saline. Catheter was then sutured in place to the skin and sterile dressing applied. Perfusion to the extremity distal to the point of catheter insertion was checked and found to be adequate. Dr. Mosher and Dr. Maddox was present for the entire procedure. Estimated blood Loss was 10 mL. The patient tolerated the procedure well and there are no complications. [facility] CENTERArnaud
--- NOTE | 2017-05-02 18:03 | CON ---
DATE OF CONSULTATION: 05/02/2017 HISTORY OF PRESENT ILLNESS: Ashley Lopes is a 67-year-old morbidly obese -Citizen Of [place] gentlema n who normally seeks care at the [facility], though he has been in and out of this hospital numerous times. He sees a local licensed practical vocational nurse and senior it security analyst. He now presented last night as per his with a history of increasing confusion and slurred speech . Last night, he might have had a stroke. Additionally, he was at the [facility] recently, they scheduled for outpatient sleep study in [facility]. He has a diagnosis of end-stage renal disease on three days a week dialysis. He has a cough, no feve r or chills. He is a long-term smoker, quit smoking many years ago. He has severe limitation to activity and can barely walk even 20 feet without getting marked short of breath. This has been going on for the last 4 months ever since he had a CVA. states that he is still a FULL CODE. No previous history of TB, pneumonia or bronchial asthma. PAST MEDICAL HISTORY: Pertinent for CHF, hypertension, hyperlipidemia, CVA, cardiac arrhythmias, hyp ertension and renal failure. PAST SURGICAL HISTORY: 1. Bypass surgery x3. 2. access. MEDICATIONS: From home on amiodarone 200, albuterol, Plavix, aspirin, gabapentin, folic acid, Renvel a, nitroglycerin, loratadine, medications for hepatitis C. This admission, he was started on vancomycin, Maxipime, Levophed and Levaquin. ALLERGIES: TETRACYCLINE and CODEINE. REVIEW OF SYSTEMS: Otherwise, unremarkable. PHYSICAL EXAMINATION: GENERAL: He is awake, responsive, though weak. VITAL SIGNS: His sats are 90-94, blood pressure 110/60 on Levophed, respirations 18, pulse 80. CHEST: Bilateral crackles, revealed rhonchi. There is no wheezing. CARDIAC: Normal S1, S2. No gallops. ABDOMEN: Soft. No masses. LABORATORY DATA: White count 10,000, H&H 9 and 31, platelet count 140, no big left shift, 87 segs. Creatinine is 7.4, BUN is 21, BNP is 2924. Venous blood gases, pH 7.21, pCO2 77, pO2 was 32. IMPRESSION: 1. Clinical respiratory failure. 2. Morbid obesity. 3. Congestive heart failure. 4. Markedly elevated diaphragm. 5. Probably sleep apnea. 6. Renal failure. 7. Recent coronary artery bypass grafting. 8. Recent cerebrovascular accident. PLAN: We will try and arrange for outpatient sleep study. Started him on BiPAP at nighttime and as needed. He was given IV albumin, steroids, neb treatments, supportive care. I will follow. Forty-five minutes critical care time.
[2017-05-02] MEDS: Atorvastatin Calcium 40 MG TAB PO SCH (21:10)
[2017-05-02] MEDS: Norepinephrine 8 MG/0.9% NS 250 ML IVPB SCH (21:10)
[2017-05-02] MEDS: GRAZOPREVIR PO SCH (21:11)
[2017-05-02] MEDS: ELBASVIR PO SCH (21:11)
[2017-05-02] MEDS ORDERED: CEFAZOLIN 1 GM in Syringe 10 ML IVPB SCH (23:00)
[2017-05-02] MEDS: Cefepime 1 GM in Syringe 10 ML IVPB SCH (23:30)
[2017-05-03 04:57] LABS: Hematocrit 29.5 % (42.0-52.0); Mean Platelet Volume 7.5 fL (7.4-10.4); Neutrophil 84 % (42-75); Red Blood Cell (RBC) Count 2.72 mill/uL (4.70-6.10); White Blood Cell (WBC) Count 8.4 thou/uL (4.8-10.8)
[2017-05-03 04:58] LABS: Anion Gap 19 mmol/L (10-20); BUN (Urea Nitrogen) 36 mg/dL (8.4-25.7); Calc. Creatinine Clearance 11 mL/min (70-130); Calcium 9.4 mg/dL (7.8-10.44); Carbon Dioxide 26 mmol/L (23-31); Chloride 98 mmol/L (98-107); Estimated GFR-MDRD 7
--- NOTE | 2017-05-03 05:44 | CON ---
DATE OF CONSULTATION: 05/02/2017 HISTORY OF PRESENT ILLNESS: Moses is a 67-year-old, patient of Dr. Saqib Lemos. The patient was admitted to the hospital last night with hypotension and a cough. His said he had fevers u p to 100.8, also a cough, he has been hypotensive here and has been requiring intravenous Levophed. He is not having chest pain or pressure. In the emergency room, he was given aspirin, DuoNeb, and Rocephin. PAST MEDICAL HISTORY: 1. Previous bypass surgery. 2. Recent catheterization by Dr. Lemos, medical therapy the only option. 3. End-stage renal disease on dialysis. PAST SURGICAL HISTORY: Previous bypass surgery. ALLERGIES: None. CURRENT MEDICATIONS: 1. He is on intravenous Levophed. 2. Lipitor. 3. Proventil. 4. Cordarone. 5. Aspirin and Plavix. He received aspirin yesterday. 6. Neurontin. 7. Solu-Cortef. 8. Levofloxacin. REVIEW OF SYSTEMS: Constitutional: Positive for weakness, fatigue. Vision: No changes. Hearing: No changes. Pulmonary: Positive for shortness of breath. Cardiac: Low blood pressure and difficu lty breathing. Gastrointestinal: No nausea, vomiting, diarrhea. Skin: No rashes. PHYSICAL EXAMINATION: GENERAL: This is ill-appearing elderly gentleman. VITAL SIGNS: Blood pressure is over 100 systolic. He is on intravenous Levophed. NECK: Neck veins are normal. Carotid normal upstrokes. No bruits. LUNGS: Clear, no wheezing, rales or rhonchi. CARDIOVASCULAR: Normal S1, normal S2. There is no murmur, rub or gallop. ABDOMEN: Soft, nontender. EXTREMITIES: No clubbing, no cyanosis or edema. SKIN: Warm and dry. PERTINENT LABORATORY DATA: Hemoglobin is 9.6. Troponin 1.437. Blood gas: pH of 7.26, pCO2 of 73.6 , apparently this was a venous study. ASSESSMENT: 1. Hypotension? infection. 2. Non-ST elevation infarction, probably demand ischemia. 3. Previous defibrillator implant in place. Atrial pacing and ventricular sensing.
[2017-05-03] MEDS: Hydrocortisone Sod Succ/PF 100 mg/2 ml Vial IVP SCH ×4 (05:56→23:35)
[2017-05-03] MEDS: Aspirin 81 mg Enteric Coated Tablet PO SCH (08:36)
[2017-05-03] MEDS: Folic Acid 1 MG TAB PO SCH (08:37)
[2017-05-03] MEDS: Multivit, Therapeutic 1 TAB PO SCH (08:37)
[2017-05-03] MEDS: Amiodarone 200 MG TAB PO SCH (08:37)
[2017-05-03] MEDS: Gabapentin 100 MG CAP PO SCH (08:37)
[2017-05-03] MEDS: Docusate 100 MG CAP PO SCH (08:38)
[2017-05-03] MEDS: Heparin 5,000 UNITS/ML VIAL SC SCH ×3 (08:38→21:30)
[2017-05-03] MEDS: Sevelamer Carbonate 800 MG TAB PO SCH ×3 (08:38→18:24)
[2017-05-03] MEDS: Clopidogrel Bisulfate 75 MG TAB PO SCH (08:38)
--- NOTE | 2017-05-03 09:01 | PDOC.FM ---
- Subjective Subjective: Patient stable overnight. Used bipap overnight, reports getting no sleep overnight. No RIGGS, CP, weakness, N/V. Continued on levophed for hypotension. - Objective MAR Reviewed: Yes Vital Signs & Weight: Vital Signs (12 hours) Temp Pulse Resp Pulse Ox 05/03/17 07:39 96 05/03/17 07:37 68 14 97 05/03/17 07:00 98.7 F 05/03/17 04:00 99.0 F 97 05/03/17 02:58 77 13 99 05/03/17 00:00 99.2 F 05/02/17 23:50 76 14 94 L Weight Weight 102.7 kg Most Recent Monitor Data Heart Rate from ECG 75 NIBP 98/61 NIBP BP-Mean 72 Respiration from ECG 17 SpO2 95 I&O: 05/02/17 05/03/17 05/04/17 06:59 06:59 06:59 Intake Total 158 1308 Output Total 0 Balance 158 1308 Result Diagrams: 05/03/17 04:29 05/03/17 04:29 <Joseph Canchola - Last Filed: 05/03/17 08:59> - Objective Vital Signs & Weight: Vital Signs (12 hours) Temp Pulse Resp Pulse Ox 05/03/17 07:39 96 05/03/17 07:37 68 14 97 05/03/17 07:00 98.7 F 05/03/17 04:00 99.0 F 97 05/03/17 02:58 77 13 99 05/03/17 00:00 99.2 F 05/02/17 23:50 76 14 94 L Weight Weight 102.7 kg Most Recent Monitor Data Heart Rate from ECG 90 NIBP 109/98 NIBP BP-Mean 105 Respiration from ECG 19 SpO2 96 I&O: 05/02/17 05/03/17 05/04/17 06:59 06:59 06:59 Intake Total 158 1308 Output Total 0 Balance 158 1308 Result Diagrams: 05/03/17 04:29 05/03/17 04:29 <Lexi Miller - Last Filed: 05/03/17 11:18> Phys Exam - Physical Examination Constitutional: NAD on bipap HEENT: PERRLA Neck: no JVD, full ROM decreased in lower lung bolanos b/l Cardiovascular: RRR, no significant murmur Gastrointestinal: soft, non-tender Musculoskeletal: pulses present trace edema in LE b/l Neurological: normal sensation, moves all 4 limbs Psychiatric: normal affect, A&O x 3 <Joseph Canchola - Last Filed: 05/03/17 08:59> Dx/Plan (1) Hypotension Status: Acute Plan: currently on levophed, will attempt to wean. Patient's CXR appears to have significant fluid on lungs which is likely 2/2 fluid overload, CHF, ESRD, demand ischemia. Will get HD today. Reevaluate after as there does not seem to be an infectious component at this point. Continue to monitor. (2) Elevated troponin Code(s): R74.8 - ABNORMAL LEVELS OF OTHER SERUM ENZYMES Status: Acute Plan: Cardiology consulted, recs greatly appreciated. Likely demand ischemia as patient has had recent history of clean cath 3 weeks ago. (3) Congestive heart failure Code(s): I50.9 - HEART FAILURE, UNSPECIFIED Status: Acute QualifierTitle: Congestive heart failure type: systolic Plan: ECHO 3 weeks ago showed EF of 25%. Patient to receive HD today, hopefully condition will improve after. (4) Hemodialysis patient Code(s): Z99.2 - DEPENDENCE ON RENAL DIALYSIS Status: Acute Plan: Today, MWF (5) A-fib Code(s): I48.91 - UNSPECIFIED ATRIAL FIBRILLATION Status: Chronic (6) CAD (coronary artery disease) Code(s): I25.10 - ATHSCL HEART DISEASE OF [place] CORONARY ARTERY W/O ANG PCTRS Status: Chronic Plan: s/p CABG w/ pacemaker NSTEMI 3 weeks ago (7) ESRD (end stage renal disease) on dialysis Code(s): N18.6 - END STAGE RENAL DISEASE; Z99.2 - DEPENDENCE ON RENAL DIALYSIS Status: Chronic (8) Systolic heart failure, chronic Code(s): I50.22 - CHRONIC SYSTOLIC (CONGESTIVE) HEART FAILURE Status: Chronic <Joseph Canchola - Last Filed: 05/03/17 08:59> Attending Addendum - Attending Addendum I personally evaluated the patient and discussed the management with Dr. Canchola I agree with the History, Examination, Assessment and Plan documented above with any addition or exceptions noted below- Patient awake/alert; denies any complaints. Afebrile VSS. 1) Hypotension- still requiring levophed for BP support; wean as tolerated, 2) NSTEMI- most likely due to demand ischemia- continue medical management; 3) HCAP- continue IV abx for now. Cultures negative to date, 4) ESRD- plan for HD today. <Lexi Miller - Last Filed: 05/03/17 11:18>
--- NOTE | 2017-05-03 11:55 | PRG ---
DATE OF SERVICE: 05/03/2017 SUBJECTIVE: This gentleman, this morning, he is better, he is less short of breath. He denies difficulty breathing. OBJECTIVE: VITAL SIGNS: Blood pressure 104/65, pulse 77, sats are 98%, respirations 18. CHEST: Chest reveals decreased breath sounds without any wheezing. CARDIAC: Normal S1 and S2. No gallops ABDOMEN: Massive. LABORATORY DATA: White count 8,000, hemoglobin and hematocrit 9 and 29, platelet count 140, and his creatinine 9.7. X-RAY FINDINGS: X-ray shows left-sided pleural effusion. IMPRESSION: 1. Hypotension, probably volume depleted, possibly sepsis. 2. obesity deconditioned. 3. Cerebrovascular accident. 4. Coronary artery disease. 5. End state renal disease. 6. Probably sleep apnea. PLAN: Continue hydrocortisone. Continue empiric antibiotics and deescalate once cultures come back. PT and supportive care. We will follow. KEARA
[2017-05-03 15:05] LABS: Vancomycin, Random 11.1 ug/mL (See Comment)
--- NOTE | 2017-05-03 15:09 | PRG ---
DATE OF SERVICE: 05/03/2017 HISTORY OF PRESENT ILLNESS: Mr. Lopes is seen today. He continues to be hypotensive. He is on Bi PAP. He states he has no current complaints. PHYSICAL EXAMINATION: CURRENT VITAL SIGNS: 87/64, pulse 74, temperature afebrile. LUNGS: Rhonchi, rales bilaterally. CARDIAC: Regular rate and rhythm. ABDOMEN: Soft and mildly distended. EXTREMITIES: 1+ pitting edema. LABORATORY DATA: Hemoglobin 8.9, platelet count 140, creatinine 9.42 with a peak troponin of 1.4. IMPRESSION: 1. Septic shock? 2. Severe coronary artery disease. 3. Ischemic cardiomyopathy. 4. End-stage renal disease. RECOMMENDATIONS: Mr. Rondon is put on Levophed and will continue for blood pressure support. He has also had antibiotic therapy. From a CV standpoint, his elevated troponin is secondary to demand isch emia. He has a completely occluded circumflex artery with no graft present. This was not approachab le percutaneously. We will continue to require close support.
[2017-05-03] MEDS: Norepinephrine 8 MG/0.9% NS 250 ML IVPB SCH (16:57)
[2017-05-03] MEDS: Atorvastatin Calcium 40 MG TAB PO SCH (21:29)
[2017-05-03] MEDS: ELBASVIR PO SCH (21:57)
[2017-05-03] MEDS: GRAZOPREVIR PO SCH (21:57)
[2017-05-03] MEDS: Cefepime 1 GM in Syringe 10 ML IVPB SCH (23:29)
[2017-05-04 04:59] LABS: #Eosinphils 0.1 thou/uL (0.0-0.7); #Lymphocytes 0.6 thou/uL (1.20-3.40); #Monocytes 0.7 thou/uL (0.11-0.59); %Eosinophils 0.6 % (0.0-10.0); %Lymphocytes 6.4 % (21.0-51.0); %Monocytes 7.3 % (0.0-10.0); Hematocrit 29.7 % (42.0-52.0); Mean Platelet Volume 8.2 fL (7.4-10.4); Red Blood Cell (RBC) Count 2.77 mill/uL (4.70-6.10); White Blood Cell (WBC) Count 9.3 thou/uL (4.8-10.8)
[2017-05-04 05:15] LABS: Anion Gap 14 mmol/L (10-20); BUN (Urea Nitrogen) 23 mg/dL (8.4-25.7); Calc. Creatinine Clearance 18 mL/min (70-130); Carbon Dioxide 29 mmol/L (23-31); Chloride 98 mmol/L (98-107); Estimated GFR-MDRD 12
[2017-05-04] MEDS: Hydrocortisone Sod Succ/PF 100 mg/2 ml Vial IVP SCH ×3 (05:35→18:01)
--- NOTE | 2017-05-04 07:17 | PDOC.FM ---
- Subjective Subjective: No significant changes overnight. Patient has been stable, BPs have been fluctuating low but MAP has been > 65 and patient denies symptoms of RIGGS, CP, dizziness. Does report mild SOB while on BIPAP. BP still requires levophed currently at 7. Tolerated HD yesterday where ~1300ml were removed. - Objective MAR Reviewed: Yes Vital Signs & Weight: Vital Signs (12 hours) Temp Pulse Resp Pulse Ox 05/04/17 04:00 98.2 F 97 05/04/17 02:48 79 26 H 98 05/04/17 02:00 80 18 98 05/04/17 00:30 78 16 99 05/04/17 00:00 98.1 F 05/03/17 20:00 98.0 F 82 26 H 97 Weight Admit Weight 102.512 kg Weight 102.7 kg Most Recent Monitor Data Heart Rate from ECG 77 NIBP 90/57 NIBP BP-Mean 73 Respiration from ECG 15 SpO2 96 I&O: 05/03/17 05/04/17 05/05/17 06:59 06:59 06:59 Intake Total 1308 1431 Output Total 0 Balance 1308 1431 Result Diagrams: 05/04/17 04:30 05/04/17 04:30 <Joseph Canchola - Last Filed: 05/04/17 07:15> - Objective Vital Signs & Weight: Vital Signs (12 hours) Temp Pulse Resp Pulse Ox 05/04/17 08:00 99.7 F H 76 21 H 95 05/04/17 07:51 76 21 H 92 L 05/04/17 07:00 99.7 F H 93 L 05/04/17 04:00 98.2 F 97 05/04/17 02:48 79 26 H 98 05/04/17 02:00 80 18 98 05/04/17 00:30 78 16 99 05/04/17 00:00 98.1 F Weight Admit Weight 102.512 kg Weight 102.7 kg Most Recent Monitor Data Heart Rate from ECG 79 NIBP 97/33 NIBP BP-Mean 34 Respiration from ECG 22 SpO2 95 I&O: 05/03/17 05/04/17 05/05/17 06:59 06:59 06:59 Intake Total 1308 1431 340 Output Total 0 Balance 1308 1431 340 Result Diagrams: 05/04/17 04:30 05/04/17 04:30 <Lexi Miller - Last Filed: 05/04/17 10:58> Phys Exam - Physical Examination Constitutional: NAD HEENT: moist MMs, oral pharynx no lesions Neck: no JVD, full ROM Respiratory: no wheezing, clear to auscultation bilateral Cardiovascular: RRR, no significant murmur Gastrointestinal: soft, non-tender Musculoskeletal: no edema, pulses present Neurological: normal sensation, moves all 4 limbs Psychiatric: normal affect, A&O x 3 <Joseph Canchola - Last Filed: 05/04/17 07:15> Dx/Plan (1) Hypotension Status: Acute Plan: currently on levophed at 7, will continue to wean. Patient's CXR appears to have significant fluid on lungs which is likely 2/2 fluid overload, CHF, ESRD, demand ischemia. Hypotension requiring levophed is the reason patient is in the CCU. (2) Elevated troponin Code(s): R74.8 - ABNORMAL LEVELS OF OTHER SERUM ENZYMES Status: Acute Plan: Cardiology consulted, recs greatly appreciated. Likely demand ischemia. (3) Congestive heart failure Code(s): I50.9 - HEART FAILURE, UNSPECIFIED Status: Acute QualifierTitle: Congestive heart failure type: systolic Plan: ECHO 3 weeks ago showed EF of 25%. (4) Hemodialysis patient Code(s): Z99.2 - DEPENDENCE ON RENAL DIALYSIS Status: Acute Plan: Yesterday, MWF (5) A-fib Code(s): I48.91 - UNSPECIFIED ATRIAL FIBRILLATION Status: Chronic Plan: with pacemaker in right chest (6) CAD (coronary artery disease) Code(s): I25.10 - ATHSCL HEART DISEASE OF [place] CORONARY ARTERY W/O ANG PCTRS Status: Chronic Plan: s/p CABG w/ pacemaker NSTEMI 3 weeks ago (7) ESRD (end stage renal disease) on dialysis Code(s): N18.6 - END STAGE RENAL DISEASE; Z99.2 - DEPENDENCE ON RENAL DIALYSIS Status: Chronic Plan: not producing urine at this time (8) Systolic heart failure, chronic Code(s): I50.22 - CHRONIC SYSTOLIC (CONGESTIVE) HEART FAILURE Status: Chronic <Joseph Canchola - Last Filed: 05/04/17 07:15> Attending Addendum - Attending Addendum I personally evaluated the patient and discussed the management with Dr. Canchola I agree with the History, Examination, Assessment and Plan documented above with any addition or exceptions noted below- Patient sitting up in bed. Denies any complaints. Afebrile VSS A/P: 1) Hypotension- improved; levophed weaned this morning and BP appears stable; continue to monitor; cultures negative to date; abx de-escalated 2) ESRD- continue HD as per renal, 3) sCHF- add beta carlos and MAXI as BP stabilizes at low dose; continue HD for fluid balance. <Lexi Miller - Last Filed: 05/04/17 10:58>
[2017-05-04] MEDS ORDERED: Albumin 25% 25 GM/100 ML BOT IVPB SCH (07:45)
[2017-05-04] MEDS: Heparin 5,000 UNITS/ML VIAL SC SCH ×3 (08:03→21:09)
[2017-05-04] MEDS: Amiodarone 200 MG TAB PO SCH (08:03)
[2017-05-04] MEDS: Folic Acid 1 MG TAB PO SCH (08:03)
[2017-05-04] MEDS: Multivit, Therapeutic 1 TAB PO SCH (08:03)
[2017-05-04] MEDS: Sevelamer Carbonate 800 MG TAB PO SCH ×3 (08:03→18:01)
[2017-05-04] MEDS: Aspirin 81 mg Enteric Coated Tablet PO SCH (08:03)
[2017-05-04] MEDS: Clopidogrel Bisulfate 75 MG TAB PO SCH (08:03)
[2017-05-04] MEDS: Docusate 100 MG CAP PO SCH (08:03)
[2017-05-04] MEDS: Gabapentin 100 MG CAP PO SCH (08:03)
--- NOTE | 2017-05-04 10:12 | PRG ---
DATE OF SERVICE: 05/04/2017 This morning he is awake, responsive, denies any shortness of breath. He was on his BiPAP last night . PHYSICAL EXAMINATION: VITAL SIGNS: Sats are 92% on 3 liters. Pulse 76, blood pressure 117/23. CHEST: Chest reveals decreased breath sounds, no wheezing. CARDIAC: Normal S1, S2, no gallops. White count 9, H&H 9 and 29, platelet count 160, creatinine 5.7. IMPRESSION: 1. Chronic renal failure, 3 weeks of dialysis. 2. Morbid obesity. 3. Respiratory failure. 4. Coronary artery disease. PLAN: Continue hydrocortisone. Deescalate antibiotics. We will discontinue vancomycin, Levaquin, c ontinue Maxipime, trial of albumin. I will follow.
[2017-05-04] MEDS ORDERED: Propofol 1,000 MG/100 ML VIAL IV ONE (12:34)
--- NOTE | 2017-05-04 15:09 | PQF ---
CLINICAL DOCUMENTATION IMPROVEMENT CLARIFICATION FORM: ICD-10 Updated PLEASE DO AN ADDENDUM TO THE PROGRESS NOTE WITH ANY DOCUMENTATION UPDATES OR ADDITIONS AND CARRY THROUGH TO DC SUMMARY. THANK YOU. DATE: 05/04/17 ATTN: Dr. Canchola/ Attending Dr. Miller Please exercise your independent, professional judgment in responding to the clarification form. Clinical indicators are provided on the bottom of this form for your review Please check appropriate box(s): [ ] Shock (please further specify type): [ ] Hypovolemic [ X] Cardiogenic ( resolved ) [ ] Septic [ ] Shock Unspecified [ ] Other diagnosis [ ] Unable to determine For continuity of documentation, please document condition throughout progress notes and discharge summary. Thank You. CLINICAL INDICATORS - SIGNS / SYMPTOMS / LABS H&P: RECTAL TEMP 100.8. VS: PULSE RANGE FROM 90-110; RESP. RATE 22 & O2 SAT 92% ON 2L NC IN THE ER, VITALS BECAME PROGRESSIVELY WORSE & AT ONE POINT, HIS SBP WAS IN THE 60'S INITIAL LACTIC ACID WAS 2.4 PN 05/02: SEPTIC SHOCK. SUSPECT POSSIBLE HAP. HOSPITALIZED ABOUT 3 WKS AGO FROM NSTEMI PULMONOLOGY PN 05/03: HYPOTENSION, PROBABLY VOLUME DEPLETED, POSSIBLY SEPSIS RISKS: H&P: HX OF ESRD ON HEMODIALYSIS, SYSTOLIC HF, & RECENT HOSPITALIZATION FOR NONSTEMI. PRESENTING W/ FEVER & HYPOTENSION CONCERNING FOR SEPTIC SHOCK. RISKS: CPOE 05/01: LEVOPHED DRIP. DC'D 05/04 CPOE 05/01: CEFEPIME 1 GM IV Q 24 HR Thank you, Mary (This form is maintained as a part of the permanent medical record) 2015 [employer]. All Rights Reserved Mary Torres RN, BSN [email or web address] Office: [phone] [facility]
--- NOTE | 2017-05-04 17:52 | PRG ---
DATE OF SERVICE: 05/04/2017 SUBJECTIVE: Mr. Lopes appears better today. No chest pain or pressure noted. His shortness of br eath has improved. He is off BiPAP. OBJECTIVE: VITAL SIGNS: Blood pressure 130/76, pulse 75, temperature 97.6. LUNGS: Clear to auscultation. CARDIAC: Regular rate and rhythm. ABDOMEN: Soft, nontender, nondistended. EXTREMITIES: No edema. LABORATORY DATA: Hemoglobin 9.2, creatinine 5.78, troponin 1.4262. IMPRESSION: 1. Elevated troponin. 2. Hypotension. 3. End-stage renal disease. RECOMMENDATIONS: Mr. Lopes's status appears stable. He is off pressors and off BiPAP. We will co ntinue antibiotic therapy. He is currently on cefepime. We will also continue atorvastatin and amio darone therapy. From a CV standpoint, there are no further progressive recommendations except for co ntinued medical therapy.
[2017-05-04] MEDS: Atorvastatin Calcium 40 MG TAB PO SCH (21:09)
[2017-05-04] MEDS: GRAZOPREVIR PO SCH (21:13)
[2017-05-04] MEDS: ELBASVIR PO SCH (21:13)
[2017-05-04] MEDS: Cefepime 1 GM in Syringe 10 ML IVPB SCH (22:48)
[2017-05-05] MEDS: Hydrocortisone Sod Succ/PF 100 mg/2 ml Vial IVP SCH ×4 (00:24→20:40)
[2017-05-05 05:24] LABS: #Eosinphils 0.1 thou/uL (0.0-0.7); #Lymphocytes 0.8 thou/uL (1.20-3.40); #Monocytes 0.5 thou/uL (0.11-0.59); #Neutrophils 5.1 thou/uL (1.40-6.50); %Basophils 0.4 % (0.0-1.0); %Monocytes 8.1 % (0.0-10.0); Hematocrit 28.2 % (42.0-52.0); Mean Platelet Volume 8.5 fL (7.4-10.4); Red Blood Cell (RBC) Count 2.64 mill/uL (4.70-6.10); White Blood Cell (WBC) Count 6.4 thou/uL (4.8-10.8)
[2017-05-05 05:34] LABS: Anion Gap 15 mmol/L (10-20); BUN (Urea Nitrogen) 36 mg/dL (8.4-25.7); Calc. Creatinine Clearance 14 mL/min (70-130); Calcium 9.9 mg/dL (7.8-10.44); Carbon Dioxide 27 mmol/L (23-31); Chloride 99 mmol/L (98-107); Estimated GFR-MDRD 9
--- NOTE | 2017-05-05 07:32 | PDOC.FM ---
- Subjective Subjective: No significant changes overnight, patient reports he was able to get some sleep. BM overnight as well. Only complaint is thick secretions difficult to swallow. Denies CP, SOB, N/V, weakness, tingling. - Objective MAR Reviewed: Yes Vital Signs & Weight: Vital Signs (12 hours) Temp Pulse Resp BP Pulse Ox 05/05/17 06:23 69 10 L 99 05/05/17 04:26 97.2 F L 70 12 106/28 L 100 05/05/17 04:00 12 100 05/05/17 02:23 95 05/05/17 00:36 78 21 H 98 05/05/17 00:33 76 20 100 05/04/17 23:34 97.5 F L 77 18 91/34 L 100 05/04/17 22:40 97.8 F 78 21 H 98 05/04/17 22:34 97.8 F 78 16 97/33 L 98 05/04/17 20:00 97.9 F 75 20 96 Weight Admit Weight 102.512 kg Weight 102.7 kg Most Recent Monitor Data Heart Rate from ECG 77 NIBP 107/31 NIBP BP-Mean 72 Respiration from ECG 22 SpO2 100 I&O: 05/04/17 05/05/17 05/06/17 06:59 06:59 06:59 Intake Total 1431 1010.9 Balance 1431 1010.9 Result Diagrams: 05/05/17 04:55 05/05/17 04:55 <Joseph Canchola - Last Filed: 05/05/17 07:30> - Objective Vital Signs & Weight: Vital Signs (12 hours) Temp Pulse Resp BP Pulse Ox 05/05/17 08:00 97.5 F L 69 12 100 05/05/17 07:31 97.5 F L 69 12 106/29 L 100 05/05/17 06:23 69 10 L 99 05/05/17 04:26 97.2 F L 70 12 106/28 L 100 05/05/17 04:00 12 100 05/05/17 02:23 95 05/05/17 00:36 78 21 H 98 05/05/17 00:33 76 20 100 05/04/17 23:34 97.5 F L 77 18 91/34 L 100 Weight Admit Weight 102.512 kg Weight 102.7 kg Most Recent Monitor Data Heart Rate from ECG 77 NIBP 107/31 NIBP BP-Mean 72 Respiration from ECG 22 SpO2 100 I&O: 05/04/17 05/05/17 05/06/17 06:59 06:59 06:59 Intake Total 1431 1010.9 360 Balance 1431 1010.9 360 Result Diagrams: 05/05/17 04:55 05/05/17 04:55 <Lexi Miller - Last Filed: 05/05/17 11:03> Phys Exam - Physical Examination Constitutional: NAD wearing bipap, EOMI Neck: no JVD, full ROM Respiratory: no wheezing, clear to auscultation bilateral Cardiovascular: RRR, no significant murmur Gastrointestinal: soft, positive bowel sounds 2+ pitting edema b/l Neurological: normal sensation, moves all 4 limbs Psychiatric: normal affect, A&O x 3 <Joseph Canchola - Last Filed: 05/05/17 07:30> Dx/Plan (1) Hypotension Status: Acute Plan: Was off levophed yesterday morning as BP was in 140s systolic. MAP yesterday and today has been hovering around 65. Patient asymptomatic, continue to monitor. (2) Elevated troponin Code(s): R74.8 - ABNORMAL LEVELS OF OTHER SERUM ENZYMES Status: Acute Plan: Cardiology consulted, recs greatly appreciated. Likely demand ischemia. (3) Congestive heart failure Code(s): I50.9 - HEART FAILURE, UNSPECIFIED Status: Acute QualifierTitle: Congestive heart failure type: systolic Plan: ECHO 3 weeks ago showed EF of 25%. (4) Hemodialysis patient Code(s): Z99.2 - DEPENDENCE ON RENAL DIALYSIS Status: Acute Plan: Today, MWF (5) A-fib Code(s): I48.91 - UNSPECIFIED ATRIAL FIBRILLATION Status: Chronic Plan: with pacemaker in right chest (6) CAD (coronary artery disease) Code(s): I25.10 - ATHSCL HEART DISEASE OF [place] CORONARY ARTERY W/O ANG PCTRS Status: Chronic Plan: s/p CABG w/ pacemaker NSTEMI 3 weeks ago (7) ESRD (end stage renal disease) on dialysis Code(s): N18.6 - END STAGE RENAL DISEASE; Z99.2 - DEPENDENCE ON RENAL DIALYSIS Status: Chronic Plan: not producing urine at this time, on HD MWF (8) Systolic heart failure, chronic Code(s): I50.22 - CHRONIC SYSTOLIC (CONGESTIVE) HEART FAILURE Status: Chronic (9) Physical deconditioning Code(s): R53.81 - OTHER MALAISE Status: Acute Plan: will plan to go to rehab upon discharge <Joseph Canchola - Last Filed: 05/05/17 07:30> Attending Addendum - Attending Addendum I personally evaluated the patient and discussed the management with Dr. Canchola I agree with the History, Examination, Assessment and Plan documented above with any addition or exceptions noted below- Patient without complaints. Denies SOB. Afebrile VSS A/P: 1) Cardiogenic shock- resolved; off levophed, 2) ESRD- continue HD, 3) Disposition- screen for rehab vs SNF; continue PT <Lexi Miller - Last Filed: 05/05/17 11:03>
[2017-05-05] MEDS: Gabapentin 100 MG CAP PO SCH (08:33)
[2017-05-05] MEDS: Sevelamer Carbonate 800 MG TAB PO SCH ×3 (08:33→20:38)
[2017-05-05] MEDS: Docusate 100 MG CAP PO SCH (08:33)
[2017-05-05] MEDS: Amiodarone 200 MG TAB PO SCH (08:33)
[2017-05-05] MEDS: Aspirin 81 mg Enteric Coated Tablet PO SCH (08:33)
[2017-05-05] MEDS: Clopidogrel Bisulfate 75 MG TAB PO SCH (08:34)
[2017-05-05] MEDS: Multivit, Therapeutic 1 TAB PO SCH (08:34)
[2017-05-05] MEDS: Heparin 5,000 UNITS/ML VIAL SC SCH ×3 (08:34→20:40)
[2017-05-05] MEDS: Folic Acid 1 MG TAB PO SCH (08:34)
[2017-05-05] MEDS: Cefdinir 300 MG CAP PO SCH ×2 (09:36→20:39)
--- NOTE | 2017-05-05 09:53 | PRG ---
DATE OF SERVICE: 05/05/2017 SUBJECTIVE: Mr. Lopes is doing well, no shortness of breath, chest pain, pressure, or other associ ated symptoms. OBJECTIVE: VITAL SIGNS: Blood pressure 106/29, pulse 69, temperature 97.5. LUNGS: Clear to auscultation. CARDIAC: Regular rate and rhythm. ABDOMEN: Soft, nontender, nondistended. EXTREMITIES: 1+ pitting edema. PERTINENT LABORATORY DATA: Hemoglobin 8.5, creatinine 7.2. IMPRESSION: 1. Elevated troponin. 2. Ischemic cardiomyopathy. 3. End-stage renal disease. 4. Hypotension, now resolved. RECOMMENDATIONS: Mr. Ramirez from a CV standpoint, appears stable. We would continue current medical therapy including aspirin, amiodarone therapy, atorvastatin, and clopidogrel. We will restart low d ose Coreg. Otherwise, I have no further cardiac recommendations. Please reconsult if needed.
--- NOTE | 2017-05-05 12:57 | PRG ---
DATE OF SERVICE: 05/05/2017 SUBJECTIVE: Awake, alert, responsive, no longer hypotensive. OBJECTIVE: VITAL SIGNS: Blood pressure is 162/90, sats are 100%, temperature 97. CHEST: Decreased breath sounds, no wheezing. CARDIAC: Normal S1, S2, no gallops. LABORATORY DATA: White count 6000, H and H 8 and 28, platelet count normal. Creatinine 7.2. ASSESSMENT: Respiratory failure, renal failure, hypertension, adrenal insufficiency probably sleep a pnea. PLAN: 1. Oral antibiotics, deescalate. 2. Decrease steroids. 3. Continue dialysis, supportive care.
[2017-05-05] MEDS: Atorvastatin Calcium 40 MG TAB PO SCH (20:39)
[2017-05-05] MEDS: GRAZOPREVIR PO SCH (20:40)
[2017-05-05] MEDS: ELBASVIR PO SCH (20:40)
[2017-05-05] MEDS ORDERED: Carvedilol 3.125 MG TAB PO SCH ×2 (21:00→23:25)
--- NOTE | 2017-05-06 07:14 | PDOC.FM ---
- Subjective Subjective: Pt seen at bedside in NAD. NAYE overnight. - Objective MAR Reviewed: Yes Vital Signs & Weight: Vital Signs (12 hours) Temp Pulse Resp BP Pulse Ox 05/06/17 07:07 67 15 99 05/06/17 03:00 97.7 F 69 16 100/65 94 L 05/06/17 01:37 74 18 100 05/06/17 01:20 73 19 100 05/05/17 23:00 97.9 F 86 18 97/62 98 05/05/17 20:00 98.0 F 82 18 05/05/17 19:34 80 12 95 Weight Admit Weight 102.512 kg Weight 102.7 kg Most Recent Monitor Data Heart Rate from ECG 77 NIBP 107/31 NIBP BP-Mean 72 Respiration from ECG 22 SpO2 100 I&O: 05/05/17 05/06/17 05/07/17 06:59 06:59 06:59 Intake Total 1010.9 1080 Output Total 0 Balance 1010.9 1080 Result Diagrams: 05/05/17 04:55 05/05/17 04:55 <Calos Branham - Last Filed: 05/06/17 08:05> - Objective Vital Signs & Weight: Vital Signs (12 hours) Temp Pulse Resp BP Pulse Ox 05/06/17 08:00 97.8 F 73 20 96/58 L 98 05/06/17 07:07 67 15 99 05/06/17 03:00 97.7 F 69 16 100/65 94 L 05/06/17 01:37 74 18 100 05/06/17 01:20 73 19 100 Weight Admit Weight 102.512 kg Weight 102.7 kg Most Recent Monitor Data Heart Rate from ECG 77 NIBP 107/31 NIBP BP-Mean 72 Respiration from ECG 22 SpO2 100 I&O: 05/05/17 05/06/17 05/07/17 06:59 06:59 06:59 Intake Total 1010.9 1080 Output Total 0 Balance 1010.9 1080 Result Diagrams: 05/05/17 04:55 05/05/17 04:55 <Kathryn High - Last Filed: 05/06/17 11:21> Phys Exam - Physical Examination Constitutional: NAD HEENT: PERRLA Respiratory: no wheezing minimal bibasilar crackles Cardiovascular: no significant murmur Gastrointestinal: soft, positive bowel sounds Musculoskeletal: edema present 2+ BL mid ramirez Neurological: moves all 4 limbs Psychiatric: normal affect, A&O x 3 <Calos Branham - Last Filed: 05/06/17 08:05> Dx/Plan (1) Cardiogenic shock Code(s): R57.0 - CARDIOGENIC SHOCK Status: Resolved Plan: -reason for admission. pt presented in shock, initially requiring levophed -hx CAD, sCHF, and ESRD likely components -pt has successfully been weaned off pressors and transferred to medical floor -resolved (2) ESRD (end stage renal disease) on dialysis Code(s): N18.6 - END STAGE RENAL DISEASE; Z99.2 - DEPENDENCE ON RENAL DIALYSIS Status: Chronic Plan: -continue HD per nephrology MWF (3) Systolic heart failure, chronic Code(s): I50.22 - CHRONIC SYSTOLIC (CONGESTIVE) HEART FAILURE Status: Chronic Plan: -TTE approximately 3 weeks ago shows EF 25% -cardiology recommendations greatly appreciated -continue medical therapy and continue to monitor (4) Paroxysmal a-fib Code(s): I48.0 - PAROXYSMAL ATRIAL FIBRILLATION Status: Chronic Plan: -continue medical therapy per cardiology -pt on carvedilol, amiodarone, plavix (5) CAD (coronary artery disease) Code(s): I25.10 - ATHSCL HEART DISEASE OF [place] CORONARY ARTERY W/O ANG PCTRS Status: Chronic Plan: -hx CAD s/p CABG with pacemaker (6) Anemia of chronic renal failure Code(s): N18.9 - CHRONIC KIDNEY DISEASE, UNSPECIFIED; D63.1 - ANEMIA IN CHRONIC KIDNEY DISEASE Status: Chronic QualifierTitle: Chronic kidney disease stage: stage 5 Qualified Code(s): N18.5 - Chronic kidney disease, stage 5; D63.1 - Anemia in chronic kidney disease; D63.1 - Anemia in chronic kidney disease Plan: -stable, continue to monitor (7) Physical deconditioning Code(s): R53.81 - OTHER MALAISE Status: Acute - Plan Plan: dispo: Pt stable. Discharge planning pending with recommendation that pt transition to inpatient rehab. Specialist recommendations greatly appreciated. Case management assistance appreciated. Continue to monitor. <Calos Branham - Last Filed: 05/06/17 08:05> Attending Addendum - Attending Addendum I personally evaluated the patient and discussed the management with Dr. Branham. I agree with the History, Examination, Assessment and Plan documented above with any addition or exceptions noted below. The patient has been accepted to inpatient rehab and will be discharged today. His has been updated and expressed appreciation for his care. <Kathryn High - Last Filed: 05/06/17 11:21>
[2017-05-06] MEDS: Sevelamer Carbonate 800 MG TAB PO SCH ×2 (08:06→12:02)
[2017-05-06] MEDS: Docusate 100 MG CAP PO SCH (08:06)
[2017-05-06] MEDS: Aspirin 81 mg Enteric Coated Tablet PO SCH (08:06)
[2017-05-06] MEDS: Clopidogrel Bisulfate 75 MG TAB PO SCH (08:06)
[2017-05-06] MEDS: Folic Acid 1 MG TAB PO SCH (08:07)
[2017-05-06] MEDS: Gabapentin 100 MG CAP PO SCH (08:07)
[2017-05-06] MEDS: Cefdinir 300 MG CAP PO SCH (08:07)
[2017-05-06] MEDS: Multivit, Therapeutic 1 TAB PO SCH (08:07)
[2017-05-06] MEDS: Amiodarone 200 MG TAB PO SCH (08:07)
[2017-05-06] MEDS: Heparin 5,000 UNITS/ML VIAL SC SCH (08:09)
[2017-05-06 09:11] VITALS: TEMP 97.8
[2017-05-06] MEDS: Hydrocortisone Sod Succ/PF 100 mg/2 ml Vial IVP SCH ×2 (10:46→12:03)
[2017-05-06 14:33] VITALS: BP 98/66
--- NOTE | 2017-05-10 15:33 | DIS-2 ---
DATE OF ADMISSION: 05/01/2017 DATE OF DISCHARGE: 05/06/2017 RESIDENT: Joseph Canchola D.O. ADMITTING ATTENDING: Buster Mosher MD. DISCHARGE ATTENDING: Kathryn High M.D. PRIMARY CARE PROVIDER: CECILIA Kong. CONSULTATIONS: 1. Dr. Baxter of Pulmonology. 2. Dr. Abel of Cardiology. 3. Dr. Reeves of Nephrology. PROCEDURES: Chest x-ray showing cardiomegaly with bibasilar lung changes, which appear to represent atelectasis some very similar to previous study on 04/09/2017. Chest x-ray on 05/01/2017, showing no significant changes. Left femoral suture line placed on 05/02/2017. PRIMARY DIAGNOSES: 1. Cardiogenic shock. 2. Septic shock. 3. End-stage renal disease on hemodialysis, Wednesday, Wednesday and Wednesday. 4. History of non ST-elevation myocardial infarction 3 weeks ago SECONDARY DIAGNOSES: 1. Systolic congestive heart failure with ejection fraction of 25% - 30%. 2. Elevated troponins. 3. Coronary artery disease, status post CABG with pacemaker. 4. History of atrial fibrillation. 5. Hyperlipidemia. 6. Anemia of chronic disease. 7. Hepatitis C. DISCHARGE MEDICATIONS: 1. Docusate sodium 100 mg p.o. daily. 2. Hydrochloride 20 mg p.o. daily. 3. Folic acid 1 mg p.o. daily. 4. Renvela 1600 mg p.o. t.i.d. with meals. 5. Atorvastatin 40 mg p.o. at bedtime. 6. Nitroglycerin 0.4 mg sublingual every 5 minutes p.r.n. chest pain. 7. Tramadol 50 mg p.o. t.i.d. p.r.n. pain. 8. Zofran 4 mg p.o. every 6 hours p.r.n. 9. Gabapentin 100 mg p.o. daily. 10. Multivitamin 1 tablet daily. 11. Loratadine 1 mg p.o. daily p.r.n. allergies. 12. Plavix 75 mg p.o. daily. 13 Aspirin 81 mg p.o. daily. 14. Albuterol 3 mL nebulizer every 6 hours p.r.n. wheezing. 15 Zepatier 50-100 mg tablet at bedtime. DISCONTINUED MEDICATIONS: 1. Guaiatussin AC liquid 200 mg p.o. at bedtime. 2. Amoxicillin 500 mg p.o. t.i.d. HISTORY OF PRESENT ILLNESS AND HOSPITAL COURSE: The patient is a 67-year-old male who presented to [facility] ER with cough and low blood pressure that he measured at home. The patient has history of NSTEMI of 3 weeks ago where he was evaluated, treated and discharged. At that visit, he had an ejection fra ction of 25% - 30%. Upon admission to hospital, during this visit, the patient was found to have low blood pressure and was started on central line and Levophed after receiving 1 liter of normal saline . On day 2 of hospitalization, the patient was able to be gradually weaned off of Levophed after 3 d ays. Based on the patient's history, there was concern that the patient had a pulmonary embolism bec ause he had been stopped on his anticoagulants. CT of the chest was done, which showed no signs of p ulmonary embolism; however, there was pleural effusions present in both lungs, right greater than lef t. The patient was also presumed to hospital acquired pneumonia and was started on vancomycin, cefep alize and Levaquin. Cardiology was consulted and believed this to be cardiogenic in nature with elevat ed troponins, leftover from NSTEMI from last hospital visit and demand ischemia contributing every ni ght. Regarding the patient's respiratory condition, the patient was able to tolerate room air during the day and required BiPAP overnight. Regarding the patient's fluid status, the patient was continu ed on his regular dose on Wednesday, Wednesday, Wednesday hemodialysis, which appeared to improve his respi ratory status as well as chest x-rays. On day #3 of hospitalization, the patient was discontinued on Levophed and was able to tolerate blood pressures and was transferred up to the floor. Antibiotics were discontinued at this time as blood cultures were negative. Indicating no infectious process. O n day #4 of hospitalization, the patient was able to tolerate p.o. medications as well as blood press ure. Therefore, the patient was discharged to inpatient rehabilitation where he will work with Occup ational Therapy and Physical Therapy to improve his physical activity as the patient has been gradual ly declining inability over the past couple of months such that now he only is able to ambulate with wheelchair. DISPOSITION: Guarded. DISCHARGE INSTRUCTIONS: 1. Location: Inpatient rehabilitation. 2. Diet: Diabetic diet, heart healthy diet, and renal diet. 3. Activity as tolerated. 4. Follow up will be dictated by inpatient rehab course.
--- NOTE | 2017-05-25 12:58 | EKG ---
Test Reason : Blood Pressure : / mmHG Vent. Rate : 093 BPM Atrial Rate : 093 BPM P-R Int : 236 ms QRS Dur : 150 ms QT Int : 400 ms P-R-T Axes : 020 -33 130 degrees QTc Int : 497 ms Atrial-paced rhythm with prolonged AV conduction Left axis deviation Left bundle branch block Abnormal ECG Confirmed by PRISCILA WOODALL ([id number]), woods manager JOCELYN JOYNER ([id number] on 05/25/2017 12:58:29 PM Referred By: Confirmed By:PRISCILA WOODALL
== END 2017-05-06 14:57 | DRG 871 ==
LOC: ERS 12:30 → CCU 20:00 → IMCU/EMU 05-04 22:06 → T4-B 05-05 13:01
PROVIDERS: ADMIT Student in an Organized Health Care Education/Training Program; ATTEND Student in an Organized Health Care Education/Training Program
PROC: 06HY33Z Insertion of Infusion Device into Lower Vein, Percutaneous Approach (ICD-10-PCS; 2017-05-01)
PROC: 5A09357 Assistance with Respiratory Ventilation, Less than 24 Consecutive Hours, Continuous Positive Airway Pressure (ICD-10-PCS; 2017-05-02)
PROC: 5A1D70Z Performance of Urinary Filtration, Intermittent, Less than 6 Hours Per Day (ICD-10-PCS; principal; 2017-05-03)
DX: A41.9 Sepsis, unspecified organism (principal); R65.21 Severe sepsis with septic shock; I21.4 Non-ST elevation (NSTEMI) myocardial infarction; J96.90 Respiratory failure, unspecified, unspecified whether with hypoxia or hypercapnia; I13.2 Hypertensive heart and chronic kidney disease with heart failure and with stage 5 chronic kidney disease, or end stage renal disease; R57.0 Cardiogenic shock; N18.6 End stage renal disease; J18.9 Pneumonia, unspecified organism; I24.8 Other forms of acute ischemic heart disease; I50.22 Chronic systolic (congestive) heart failure; E27.40 Unspecified adrenocortical insufficiency; J44.0 Chronic obstructive pulmonary disease with (acute) lower respiratory infection; I48.0 Paroxysmal atrial fibrillation; E66.01 Morbid (severe) obesity due to excess calories; Z95.1 Presence of aortocoronary bypass graft; E78.5 Hyperlipidemia, unspecified; I25.5 Ischemic cardiomyopathy; I25.10 Atherosclerotic heart disease of native coronary artery without angina pectoris; Z95.810 Presence of automatic (implantable) cardiac defibrillator; Z87.891 Personal history of nicotine dependence; Z86.73 Personal history of transient ischemic attack (TIA), and cerebral infarction without residual deficits; D63.1 Anemia in chronic kidney disease; Z99.2 Dependence on renal dialysis; M10.9 Gout, unspecified; M19.90 Unspecified osteoarthritis, unspecified site; G47.33 Obstructive sleep apnea (adult) (pediatric); I70.209 Unspecified atherosclerosis of native arteries of extremities, unspecified extremity; Y95 Nosocomial condition; Z68.28 Body mass index [BMI] 28.0-28.9, adult
CPT/HCPCS: 36415; 36416; 71010; 80048; 80053; 80202; 82140; 82533; 82553; 82805; 83605; 83690; 83735; 83880; 84145; 84443; 84484; 85025; 87040; 90935; 93005; 94640; 94660; 96361; 96365; 96366; 96375; 99292; A4216; C1751; G0257; G8978-GP-CM; G8979-GP-CI; J0692; J0696; J1644; J1720; J1956; J2704; J3370; J7050; J7620; P9047

== ENCOUNTER 2017-06-06 09:35 | Emergency (ER) | payer MEDICARE ==
[2017-06-06] MEDS ORDERED: HYDROcodone/Acetaminophen 10/325 mg Tablet ONE (09:56)
--- NOTE | 2017-06-06 12:31 | RAD ---
LEFT FOOT 3 VIEWS: Date: 06/06/17 HISTORY: Trauma. Leg pain. COMPARISON: None. FINDINGS: Moderate hallux valgus deformity. There are erosions of the lateral aspect of the great toe metatarsa l head. Bones are severely osteopenic. Mild loss of the medial longitudinal arch height. Lisfranc interval evaluation is limited due to oste openia. IMPRESSION: 1. Extensive osteopenia with mild hallux valgus deformity. No displaced fracture is appreciated. 2. Extensive vascular calcifications. POS: [facility]
--- NOTE | 2017-06-06 12:37 | RAD ---
RIGHT KNEE 4 VIEWS: Date: 06/06/17 HISTORY: Pain, trauma, fall. COMPARISON: None. FINDINGS: Moderate size joint effusion. Enthesopathic changes of the patellar tendon. Extensive vascular calcif ications. No displaced fracture or malalignment. Bones are osteopenic. IMPRESSION: 1. No displaced fracture or malalignment. 2. Moderate joint effusion may be reactive or from internal derangement. 3. Enthesopathic changes of the inferior patellar tendon, as well as some cortical irregularity of t he distal patellar pole. Recommend clinical correlation with focal tenderness. POS: [facility]
--- NOTE | 2017-06-06 12:42 | RAD ---
RIGHT ANKLE 2 VIEWS: Date: 06/06/17 HISTORY: Fall. COMPARISON: None. FINDINGS: No displaced fracture. Ankle mortise is congruent. Bones are severely osteopenic. There are extensive vascular calcifications. IMPRESSION: No displaced fracture. POS: [facility]
--- NOTE | 2017-06-06 12:43 | RAD ---
RIGHT FOOT 3 VIEWS: Date: 06/06/17 HISTORY: Pain, fall. COMPARISON: Foot radiograph dated 04/09/17. FINDINGS: Bones are severely osteopenic. No displaced fracture or malalignment. Old injury of the fifth metatar uziel neck. Moderate hallux valgus deformity. IMPRESSION: No new acute abnormality. POS: [facility]
--- NOTE | 2017-06-06 12:44 | RAD ---
LEFT ANKLE 3 VIEWS: Date: 06/06/17 HISTORY: Fall. Trauma. COMPARISON: None. FINDINGS: No displaced fracture or malalignment. Ankle mortise is congruent. Extensive vascular calcifications. IMPRESSION: No displaced fracture or malalignment. POS: [facility]
== END 2017-06-06 12:09 | disposition home or self-care (01) ==
LOC: ERS 09:35
DX: S80.12XA Contusion of left lower leg, initial encounter (principal); S80.11XA Contusion of right lower leg, initial encounter; E78.5 Hyperlipidemia, unspecified; I48.91 Unspecified atrial fibrillation; D50.0 Iron deficiency anemia secondary to blood loss (chronic); I13.2 Hypertensive heart and chronic kidney disease with heart failure and with stage 5 chronic kidney disease, or end stage renal disease; I50.9 Heart failure, unspecified; N18.6 End stage renal disease; E21.3 Hyperparathyroidism, unspecified; F41.9 Anxiety disorder, unspecified; F32.9 Major depressive disorder, single episode, unspecified; Z79.82 Long term (current) use of aspirin; Z79.899 Other long term (current) drug therapy; W01.0XXA Fall on same level from slipping, tripping and stumbling without subsequent striking against object, initial encounter

== ENCOUNTER 2017-06-08 14:50 | Emergency (ER) | payer MEDICARE ==
[2017-06-08 15:27] LABS: Base Excess-Venous -15.6 mmol/L (-30.0-30.0); Bicarbonate (HCO3v) 16.5 mmol/L (1.0-85.0); CO2 Tension (PvCO2) 86.6 mmHg (41.0-51.0); Calcium, Ionized 1.39 mmol/L (1.12-1.32); Hemoglobin - Calc 6.9 g/dL (12.0-18.0); Lactate 7.97 mmol/L (0.50-2.20); O2 Tension (PvO2) 42.3 mmHg (35.0-45.0); Potassium 4.5 mmol/L (3.4-4.7); T. Carbon Dioxide 19.2 mmol/L (1.0-85.0); pH (Venous) 6.889 (7.35-7.45); vO2 Saturation-calc 44.4 % (0.0-100.0)
[2017-06-08] MEDS ORDERED: Dextrose 50% Abboject 50 ML SYRINGE ONE (17:56)
[2017-06-08] MEDS ORDERED: Atropine Sulfate 1 mg/10 ml Syringe ONE (17:56)
[2017-06-08] MEDS ORDERED: EPINEPHrine 1 MG/10 ML Abboject SYRINGE ONE (17:56)
[2017-06-08] MEDS ORDERED: Sodium Bicarb 50 MEQ/50 ML Abboject 8.4% SYRINGE ONE (17:56)
[2017-06-08] MEDS ORDERED: Calcium Chloride 1 GM/10 ML Abboject SYRINGE ONE (17:56)
[2017-06-08] MEDS ORDERED: Magnesium 5 GM/10 ML Abboject SYRINGE ONE (17:56)
== END 2017-06-08 15:08 | disposition expired ==
LOC: ERS 14:50
DX: I46.9 Cardiac arrest, cause unspecified (principal)
CPT/HCPCS: 36556; 82330; 82435; 82565; 82803; 82947; 83605; 84132; 84295; 85014; 92950; 96374; 96375; J0171; J0461; J3475